=== PATIENT | female | born 1940 | race Caucasian/White ===

== ENCOUNTER 2020-04-25 07:42 | Outpatient (REF) | payer MEDICARE, SELFPAY ==
[2020-04-25 08:39] LABS: Basophils Absolute Auto 0.1 X10*3/uL (0.0-0.2); Eosinophils Absolute Auto 0.1 X10*3/uL (0.0-0.4); Eosinophils Percent Auto 1.8 % (0-4); Hematocrit 39.2 % (37-47); Hemoglobin 12.3 g/dl (12.0-16.0); Imm Gran Abs Auto 0.01 X10*3/uL (0.00-0.03); Imm Gran Pct Auto 0.2 % (0.0-0.4); Lymphocytes Absolute Auto 2.3 X10*3/uL (1.2-4.9); Lymphocytes Percent Auto 47.1 % (20-40); Mean Corpuscular HGB Conc 31.4 g/dl (31.0-35.0); Mean Corpuscular Hemoglobin 27.5 pg (27.0-33.0); Mean Corpuscular Volume 87.5 fL (80-98); Mean Platelet Volume 10.1 fL (9.4-12.3); Monocytes Absolute Auto 0.3 X10*3/uL (0.1-1.2); Monocytes Percent Auto 6.5 % (2-11); Neutrophils Absolute Auto 2.1 X10*3/uL (2.0-8.3); Neutrophils Percent Auto 43.4 % (45-73); Platelet Count 265 X10*3/uL (160-400); Red Blood Count 4.48 X10*6/uL (4.20-5.50); Red Cell Distribution Width 13.6 % (11.0-16.0); White Blood Count 4.9 X10*3/uL (4.8-10.8)
[2020-04-25 08:40] LABS: MANUAL DIFF FLAG NO
[2020-04-25 08:48] LABS: Estimated Average Glucose 189 mg/dL; Hemoglobin A1c % 8.2 %
[2020-04-25 09:24] LABS: Alanine Aminotransferase 13 U/L (0-31); Albumin Level 4.3 g/dL (3.5-5.0); Alkaline Phosphatase 84 U/L (39-117); Anion Gap 13 (12-20); Aspartate Amino Transferase 18 U/L (5-31); Bilirubin Total 0.5 mg/dL (0.0-1.0); Blood Urea Nitrogen 30 mg/dL (9-16); Carbon Dioxide 27 mmol/L (22-29); Chloride 105 mmol/L (96-108); Cholesterol 212 mg/dL; Estimated Glomerular Filt Rate 42; Glucose Random 164 mg/dL (60-115); HDL Cholesterol 55 mg/dL; LDL Cholesterol Calculated 143 mg/dl; Potassium 5.3 mmol/l (3.3-5.1); Sodium 140 mmol/L (135-145); Total Protein 7.2 g/dL (6.5-8.0); Triglycerides 72 mg/dL
[2020-04-25 09:25] LABS: Creatinine Urine 135.26 mg/dL; Microalbum/Creatinine Ratio Ur 8.8 ug/mg cr
[2020-04-25 09:45] LABS: Ferritin 12 ng/mL (10-250); Thyroid Stimulating Hormone 1.89 uIU/mL (0.32-4.0)
[2020-04-25 09:48] LABS: Vitamin B12 157 pg/mL (200-900)
== END 2020-04-25 07:43 | disposition home or self-care (01) ==
LOC: HO.LAB 07:42
PROVIDERS: PCP Internal Medicine; Visit Provider Internal Medicine
DX: E11.9 Type 2 diabetes mellitus without complications (principal); I10 Essential (primary) hypertension; D64.9 Anemia, unspecified; E78.00 Pure hypercholesterolemia, unspecified
CPT/HCPCS: 36415; 80053; 80061; 82043; 82607; 82728; 83036; 84443; 85025

== ENCOUNTER 2020-06-19 11:44 | Outpatient (REF) | payer MEDICARE, SELFPAY | END 2020-06-19 11:45 | disposition home or self-care (01) | LOC: HO.LAB 11:44 | PROVIDERS: PCP Internal Medicine; Visit Provider Internal Medicine | DX: Z20.822 Contact with and (suspected) exposure to COVID-19 (principal) | CPT/HCPCS: 36415; C9803; U0003; U0005 ==

== ENCOUNTER 2020-10-08 06:34 | Outpatient (REF) | payer MEDICARE, SELFPAY ==
[2020-10-08 07:40] LABS: Estimated Average Glucose 146 mg/dL; Hemoglobin A1c % 6.7 %
[2020-10-08 07:41] LABS: Alanine Aminotransferase 8 U/L (0-31); Alkaline Phosphatase 81 U/L (39-117); Anion Gap 12 (12-20); Aspartate Amino Transferase 14 U/L (5-31); Bilirubin Total 0.6 mg/dL (0.0-1.0); Blood Urea Nitrogen 25 mg/dL (9-16); Calcium 9.6 mg/dL (8.4-10.2); Carbon Dioxide 25 mmol/L (22-29); Chloride 111 mmol/L (96-108); Cholesterol 188 mg/dL; Estimated Glomerular Filt Rate 48; Glucose Random 138 mg/dL (60-115); HDL Cholesterol 51 mg/dL; LDL Cholesterol Calculated 119 mg/dl; Potassium 4.5 mmol/L (3.3-5.1); Sodium 143 mmol/L (135-145); Total Protein 6.6 g/dL (6.5-8.0); Triglycerides 92 mg/dL
== END 2020-10-08 06:35 | disposition home or self-care (01) ==
LOC: HO.LAB 06:34
PROVIDERS: PCP Internal Medicine; Visit Provider Internal Medicine
DX: Z00.01 Encounter for general adult medical examination with abnormal findings (principal); D51.3 Other dietary vitamin B12 deficiency anemia; E11.65 Type 2 diabetes mellitus with hyperglycemia; E78.00 Pure hypercholesterolemia, unspecified; I10 Essential (primary) hypertension; Z91.14 Patient's other noncompliance with medication regimen
CPT/HCPCS: 36415; 80053; 80061; 83036

== ENCOUNTER 2021-05-28 07:02 | Outpatient (REF) | payer MEDICARE, SELFPAY ==
[2021-05-28 07:24] LABS: MANUAL DIFF FLAG NO
[2021-05-28 08:00] LABS: Basophils Percent Auto 0.6 % (0-2); Eosinophils Absolute Auto 0.1 X10*3/uL (0.0-0.4); Eosinophils Percent Auto 1.7 % (0-4); Hematocrit 39.4 % (37.0-47.0); Hemoglobin 12.6 g/dl (12.0-16.0); Imm Gran Abs Auto 0.01 X10*3/uL (0.00-0.03); Imm Gran Pct Auto 0.2 % (0.0-0.4); Lymphocytes Percent Auto 36.9 % (20-40); Mean Corpuscular Hemoglobin 27.7 pg (27.0-33.0); Mean Corpuscular Volume 86.6 fL (80.0-98.0); Mean Platelet Volume 10.8 fL (9.4-12.3); Monocytes Absolute Auto 0.4 X10*3/uL (0.1-1.2); Monocytes Percent Auto 7.3 % (2-11); Neutrophils Absolute Auto 2.9 x10*3/uL (2.0-8.3); Neutrophils Percent Auto 53.3 % (45-73); Platelet Count 238 X10*3/uL (160-400); Red Blood Count 4.55 X10*6/uL (4.20-5.50); Red Cell Distribution Width 13.5 % (11.0-16.0); White Blood Count 5.3 X10*3/uL (4.8-10.8)
[2021-05-28 08:26] LABS: Estimated Average Glucose 154 mg/dL
[2021-05-28 08:33] LABS: Alanine Aminotransferase 15 U/L (0-31); Albumin Level 4.4 g/dL (3.5-5.0); Alkaline Phosphatase 91 U/L (39-117); Anion Gap 15 (12-20); Aspartate Amino Transferase 19 U/L (5-31); Bilirubin Total 0.4 mg/dL (0.0-1.0); Blood Urea Nitrogen 22 mg/dL (9-16); Calcium 10.3 mg/dL (8.4-10.2); Carbon Dioxide 23 mmol/L (22-29); Chloride 106 mmol/L (96-108); Cholesterol 230 mg/dL; Estimated Glomerular Filt Rate 42; Glucose Random 146 mg/dL (60-115); HDL Cholesterol 51 mg/dL; LDL Cholesterol Calculated 155 mg/dl; Potassium 4.4 mmol/L (3.3-5.1); Sodium 140 mmol/L (135-145); Total Protein 7.5 g/dL (6.5-8.0); Triglycerides 124 mg/dL
[2021-05-28 08:33] LABS: Creatinine Urine 211.16 mg/dL; Microalbum/Creatinine Ratio Ur 9.9 ug/mg cr
== END 2021-05-28 07:03 | disposition home or self-care (01) ==
LOC: HO.LAB 07:02
PROVIDERS: PCP Internal Medicine; Visit Provider Internal Medicine
DX: Z00.00 Encounter for general adult medical examination without abnormal findings (principal); E11.9 Type 2 diabetes mellitus without complications; I10 Essential (primary) hypertension; E78.00 Pure hypercholesterolemia, unspecified
CPT/HCPCS: 36415; 80053; 80061; 82043; 83036; 85025

== ENCOUNTER 2021-12-15 08:39 | Outpatient (REF) | payer MEDICARE, SELFPAY ==
[2021-12-15 09:19] LABS: Estimated Average Glucose 203 mg/dL; Hemoglobin A1c % 8.7 %
[2021-12-15 09:42] LABS: Alanine Aminotransferase 12 U/L (0-31); Alkaline Phosphatase 90 U/L (39-117); Anion Gap 12 (12-20); Aspartate Amino Transferase 13 U/L (5-31); Bilirubin Total 0.6 mg/dL (0.0-1.0); Blood Urea Nitrogen 20 mg/dL (9-16); Calcium 9.5 mg/dL (8.4-10.2); Carbon Dioxide 27 mmol/L (22-29); Chloride 107 mmol/L (96-108); Cholesterol 223 mg/dL; Estimated Glomerular Filt Rate 46; Glucose Random 182 mg/dL (60-115); HDL Cholesterol 52 mg/dL; LDL Cholesterol Calculated 153 mg/dl; Potassium 4.4 mmol/L (3.3-5.1); Sodium 142 mmol/L (135-145); Total Protein 6.9 g/dL (6.5-8.0); Triglycerides 91 mg/dL
== END 2021-12-15 08:40 | disposition home or self-care (01) ==
LOC: HO.LAB 08:39
PROVIDERS: PCP Internal Medicine; Visit Provider Internal Medicine
DX: E11.9 Type 2 diabetes mellitus without complications (principal); I10 Essential (primary) hypertension; E78.00 Pure hypercholesterolemia, unspecified; Z68.28 Body mass index [BMI] 28.0-28.9, adult
CPT/HCPCS: 36415; 80053; 80061; 83036

== ENCOUNTER 2021-12-31 07:53 | Outpatient (REF) | payer MEDICARE, SELFPAY ==
[2021-12-31 08:39] LABS: COVID-19 Test Negative (Negative); IDNOW Serial# 16C4AD1C
== END 2021-12-31 07:54 | disposition home or self-care (01) ==
LOC: HO.LAB 07:53
PROVIDERS: Visit Provider Internal Medicine
DX: Z20.822 Contact with and (suspected) exposure to COVID-19 (principal)
CPT/HCPCS: 87635; C9803

== ENCOUNTER 2022-04-07 06:23 | Outpatient (REF) | payer MEDICARE, SELFPAY ==
[2022-04-07 07:41] LABS: Estimated Average Glucose 203 mg/dL; Hemoglobin A1c % 8.7 %
[2022-04-07 07:48] LABS: Alanine Aminotransferase 26 U/L (0-31); Albumin Level 4.2 g/dL (3.5-5.0); Alkaline Phosphatase 94 U/L (39-117); Anion Gap 12 (12-20); Aspartate Amino Transferase 28 U/L (5-31); Bilirubin Total 0.4 mg/dL (0.0-1.0); Blood Urea Nitrogen 20 mg/dL (9-16); Carbon Dioxide 27 mmol/L (22-29); Chloride 109 mmol/L (96-108); Cholesterol 135 mg/dL; Estimated Glomerular Filt Rate 45; Glucose Random 156 mg/dL (60-115); HDL Cholesterol 35 mg/dL; LDL Cholesterol Calculated 70 mg/dl; Potassium 4.3 mmol/L (3.3-5.1); Sodium 144 mmol/L (135-145); Total Protein 7.2 g/dL (6.5-8.0); Triglycerides 154 mg/dL
== END 2022-04-07 06:24 | disposition home or self-care (01) ==
LOC: HO.LAB 06:23
PROVIDERS: PCP Internal Medicine; Visit Provider Internal Medicine
DX: E11.9 Type 2 diabetes mellitus without complications (principal); E78.00 Pure hypercholesterolemia, unspecified; I10 Essential (primary) hypertension
CPT/HCPCS: 36415; 80053; 80061; 83036

== ENCOUNTER 2022-07-16 07:11 | Outpatient (REF) | payer MEDICARE, SELFPAY ==
[2022-07-16 07:24] LABS: MANUAL DIFF FLAG NO
[2022-07-16 07:33] LABS: Basophils Percent Auto 0.7 % (0-2); Eosinophils Absolute Auto 0.2 X10*3/uL (0.0-0.4); Eosinophils Percent Auto 2.9 % (0-4); Hematocrit 35.9 % (37.0-47.0); Hemoglobin 11.3 g/dl (12.0-16.0); Imm Gran Abs Auto 0.01 X10*3/uL (0.00-0.03); Imm Gran Pct Auto 0.2 % (0.0-0.4); Lymphocytes Absolute Auto 2.3 X10*3/uL (1.2-4.9); Lymphocytes Percent Auto 41.1 % (20-40); Mean Corpuscular HGB Conc 31.5 g/dl (31.0-35.0); Mean Corpuscular Hemoglobin 26.7 pg (27.0-33.0); Mean Corpuscular Volume 84.9 fL (80.0-98.0); Mean Platelet Volume 10.1 fL (9.4-12.3); Monocytes Absolute Auto 0.4 X10*3/uL (0.1-1.2); Monocytes Percent Auto 7.4 % (2-11); Neutrophils Absolute Auto 2.7 x10*3/uL (2.0-8.3); Neutrophils Percent Auto 47.7 % (45-73); Platelet Count 231 X10*3/uL (160-400); Red Blood Count 4.23 X10*6/uL (4.20-5.50); Red Cell Distribution Width 13.9 % (11.0-16.0); White Blood Count 5.6 X10*3/uL (4.8-10.8)
[2022-07-16 08:08] LABS: Alanine Aminotransferase 16 U/L (0-31); Albumin Level 4.1 g/dL (3.5-5.0); Alkaline Phosphatase 100 U/L (39-117); Anion Gap 13 (12-20); Aspartate Amino Transferase 15 U/L (5-31); Bilirubin Total 0.5 mg/dL (0.0-1.0); Blood Urea Nitrogen 27 mg/dL (9-16); Calcium 9.5 mg/dL (8.4-10.2); Carbon Dioxide 24 mmol/L (22-29); Chloride 109 mmol/L (96-108); Estimated Glomerular Filt Rate 36; Glucose Random 207 mg/dL (60-115); Sodium 142 mmol/L (135-145); Total Protein 6.9 g/dL (6.5-8.0)
[2022-07-16 09:05] LABS: Estimated Average Glucose 220 mg/dL; Hemoglobin A1c % 9.3 %
[2022-07-16 09:22] LABS: Vitamin B12 291 pg/mL (200-900)
[2022-07-16 10:16] LABS: Creatinine Urine 35.85 mg/dL; Microalbum/Creatinine Ratio Ur 47.4 ug/mg cr
== END 2022-07-16 07:12 | disposition home or self-care (01) ==
LOC: HO.LAB 07:11
PROVIDERS: PCP Internal Medicine; Visit Provider Internal Medicine
DX: E11.9 Type 2 diabetes mellitus without complications (principal); E78.00 Pure hypercholesterolemia, unspecified; I10 Essential (primary) hypertension
CPT/HCPCS: 36415; 80053; 82043; 82607; 83036; 85025

== ENCOUNTER 2022-10-28 06:28 | Outpatient (REF) | payer MEDICARE, SELFPAY ==
[2022-10-28 08:01] LABS: Alanine Aminotransferase 12 U/L (0-31); Alkaline Phosphatase 91 U/L (39-117); Anion Gap 14 (12-20); Aspartate Amino Transferase 16 U/L (5-31); Bilirubin Total 0.4 mg/dL (0.0-1.0); Blood Urea Nitrogen 23 mg/dL (9-16); Calcium 10.2 mg/dL (8.4-10.2); Carbon Dioxide 25 mmol/L (22-29); Chloride 109 mmol/L (96-108); Estimated Glomerular Filt Rate 42; Glucose Random 141 mg/dL (60-115); Potassium 4.5 mmol/L (3.3-5.1); Sodium 143 mmol/L (135-145); Total Protein 7.2 g/dL (6.5-8.0)
[2022-10-28 08:06] LABS: Estimated Average Glucose 160 mg/dL; Hemoglobin A1c % 7.2 %
== END 2022-10-28 06:29 | disposition home or self-care (01) ==
LOC: HO.LAB 06:28
PROVIDERS: PCP Internal Medicine; Visit Provider Internal Medicine
DX: E11.65 Type 2 diabetes mellitus with hyperglycemia (principal); E11.22 Type 2 diabetes mellitus with diabetic chronic kidney disease; E78.00 Pure hypercholesterolemia, unspecified; I12.9 Hypertensive chronic kidney disease with stage 1 through stage 4 chronic kidney disease, or unspecified chronic kidney disease; N18.9 Chronic kidney disease, unspecified
CPT/HCPCS: 36415; 80053; 83036

== ENCOUNTER 2023-01-12 11:34 | Outpatient (REF) | payer MEDICARE, SELFPAY ==
--- NOTE | ~2023-01-12 | XR_ITS ---
EXAMINATION: XR HIP, LEFT CLINICAL INFORMATION: Osteoarthritis. COMPARISON: No prior left hip radiographs available for direct comparison. TECHNIQUE: Two views of the left hip. FINDINGS: Mild-moderate left hip osteoarthritis with joint space loss, marginal osteophytes. Ossifications along the lateral aspect of acetabulum, from osteophytes plus/minus loose bodies. No visible acute fracture or dislocation. There are rounded densities projected at the left ilium, measuring 2.1 cm and 1.3 cm respectively. It is uncertain if this represents overlying densities versus sclerotic lesions in the ilium. SI joints are intact. Right hip arthroplasty is partially imaged. Intact symphysis pubis. Degeneration in the visualized lower lumbar spine. XR/XR hip LT min 2V IMPRESSION: Mild-moderate left hip osteoarthritis. Lateral acetabular marginal osteophytes plus/minus loose bodies. Rounded densities projected over the left ilium, which could be related to overlapping densities versus sclerotic bone lesions. Recommend dedicated pelvic radiographs for further evaluation.
[2023-01-12 12:51] LABS: Alanine Aminotransferase 11 U/L (0-31); Albumin Level 4.3 g/dL (3.5-5.0); Alkaline Phosphatase 93 U/L (39-117); Anion Gap 11 (12-20); Aspartate Amino Transferase 16 U/L (5-31); Bilirubin Total 0.4 mg/dL (0.0-1.0); Blood Urea Nitrogen 26 mg/dL (9-16); Calcium 10.1 mg/dL (8.4-10.2); Carbon Dioxide 24 mmol/L (22-29); Chloride 111 mmol/L (96-108); Estimated Glomerular Filt Rate 43; Glucose Random 153 mg/dL (60-115); Potassium 4.2 mmol/L (3.3-5.1); Sodium 142 mmol/L (135-145); Total Protein 7.7 g/dL (6.5-8.0)
== END 2023-01-12 11:35 | disposition home or self-care (01) ==
LOC: HO.XRAY 11:34
PROVIDERS: PCP Internal Medicine; Visit Provider Internal Medicine
DX: M16.32 Unilateral osteoarthritis resulting from hip dysplasia, left hip (principal); M51.16 Intervertebral disc disorders with radiculopathy, lumbar region
CPT/HCPCS: 36415; 73502; 80053

== ENCOUNTER 2023-02-03 17:20 | Outpatient (REF) | payer MEDICARE, SELFPAY | END 2023-02-03 17:21 | disposition home or self-care (01) | LOC: HO.MRI 17:20 | PROVIDERS: PCP Internal Medicine; Visit Provider Internal Medicine | DX: M54.16 Radiculopathy, lumbar region (principal) | CPT/HCPCS: 72148 ==

== ENCOUNTER 2023-02-10 07:39 | Outpatient (REF) | payer MEDICARE, SELFPAY ==
--- NOTE | ~2023-02-10 | XR_ITS ---
EXAMINATION: XR PELVIS CLINICAL INFORMATION: Pain COMPARISON: Left hip radiograph from 01/12/2023 TECHNIQUE: AP view of the pelvis. FINDINGS: Status post right hip arthroplasty, grossly intact. No acute visible fracture or dislocation. Degenerative arthropathy of the left femoral acetabular joints and lumbosacral spine. Redemonstration of sclerotic foci overlying the left ileum nonspecific and may potentially representing bone islands. Joint spaces and alignment are otherwise maintained. Bowel gas is unremarkable. Pelvic phleboliths are noted. Soft tissues are unremarkable. XR/XR pelvis 1-2V IMPRESSION: 1. Status post right hip arthroplasty, grossly intact. 2. No acute visible fracture or dislocation. 3. Degenerative arthropathy of the left femoral acetabular joints and lumbosacral spine. 4. Redemonstration of sclerotic foci overlying the left ileum nonspecific and may potentially represent bone islands.
== END 2023-02-10 07:40 | disposition home or self-care (01) ==
LOC: HO.XRAY 07:39
PROVIDERS: PCP Internal Medicine; Visit Provider Internal Medicine
DX: R93.6 Abnormal findings on diagnostic imaging of limbs (principal)
CPT/HCPCS: 72170

== ENCOUNTER 2023-02-19 13:27 | Outpatient (AMB) | payer MEDICARE, SELFPAY ==
--- NOTE | 2023-02-19 13:34 | MHC.OFFVIS ---
Intake Vital Signs 02/19/23 13:38 Height 4 ft 6 in Weight 127 lb 3 oz BMI 30.7 BP 170/77 H Blood Pressure Location Lt brachial Position Sitting Pulse 85 Pulse Source Pulse Oximeter Pulse Oximetry (%) 98 Oxygen Delivery Method Room Air Intake Visit Reasons: Lumbar Radiculopathy Intake Note: Pain today 01/10 Dialysis Technician Required: No Accompanied by: Other Relationship Allergies atorvastatin Allergy (Unknown, Verified 02/19/23 13:53) Unknown metformin Allergy (Unknown, Verified 02/19/23 13:53) Unknown lisinopril Adverse Reaction (Unknown, Verified 02/19/23 13:53) Cough losartan Adverse Reaction (Unknown, Verified 02/19/23 13:53) Itching HPI Lumbar Radiculopathy HPI Details Patient is a very pleasant 82 years old female with prior history of diabetes, hip and knee OA, s/p right LYDIA in 2014, presents today for evaluation of left hip pain. Denies any recent trauma, injury or falls. Patient reports she has missed initial evaluation with Orthopedic provider on 02/18/23 for left hip and also has upcoming Neurosurgical evaluation at [facility] on 03/11/23 for left lumbar radiculopathy. Patient denies any significant back pain today. SLR testing reproduces left thigh and lateral hip pain but does not radiate below knee level. She does report weakness in her anterior thigh, hip and occasionally in her left knee. Denies numbness, tingling or foot drop. Coughing or sneezing does not reproduce pain. Patient reports significant left groin pain, especially with getting out of bed, shower or car, walking, prolonged positions such as standing for cooking or washing dishes, weight bearing or cold weather changes. Denies pain during sitting, sleeping or resting. Pain has been mainly controlled with NSAIDs and minimal benefit from PT as movements have been easily aggravating her symptoms. Patient denies previous spine surgery or injections. She is interested to undergo left hip intra-articular steroid injection with fluoroscopy to relieve her symptoms. Most recent A1C was 7.2 on 10/28/22. Denies bladdr or bowel dysfunction or saddle anesthesia. Location Left hip pain Duration Pain present for 3.5 months Characteristics of symptom or complaint Stabbing, spasming , aching, sharp Aggravating or associated factors Walking, movements, prolonged standing, ADLs, cold weather changes Relieving factors Rest, laying down, sitting, NSAIDs Treatment PT-currently in therapy for back and left hip pain, mild relief PFSH Medical History (Updated 02/21/23 @ 21:42 by GAGE Hernandez) Arthritis Diabetes mellitus Hypercholesteremia Anemia Asthma Hypertension Surgical History (Updated 02/21/23 @ 21:42 by GAGE Hernandez) H/O hernia repair H/O tubal ligation 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 Alert and oriented. Mood and affect appropriate. Pleasant. Follows and participates in conversation appropriately. Respiratory effort is unlabored. No cough. Able to transition from sit to stand unassisted. Uses cane with ambulation. Ambulates with bilaterally normal heel strike and toe off. Back/Spine/Pelvis Other: Limited lumbar ROM, extension reproduces mild low back pain, flexion and bending does not reproduce pain. Antalgic gait with mild limping. Demonstrates 5/5 right and 4/5 left strength of quadriceps bilaterally as well as flexion/dorsiflexion of bilateral feet against resistance. 2+ pedal pulses bilaterally. Seated straight leg rise with dorsiflexion negative on the right, on the reproduces left thigh and lateral hip pain but does not radiate below knee level. She does report weakness in her anterior thigh, hip and occasionally in her left knee. Dimished patellar and achilles reflexes bilaterally. Facet loading test positive bilaterally. FADIR, Ziggy?s, Pelvic compression and Stinchfield tests reproduce left lateral hip and left groin pain but not low back pain. +mild TTP in left GTB and mild tension in left ITB. Significant left groin pain with I/E hip rotations, worse with internal rotation. Valsalva maneuver negative. Extrem General: Yes capillary refill normal, Yes no clubbing, cyanosis or edema and Yes no calf tenderness Results Reviewed Results Reviewed: MR LUMBAR SPINE WITHOUT CONTRAST 02/03/23 CLINICAL INFORMATION: Left radiculopathy FINDINGS: There is transitional lumbosacral anatomy with lumbarization of S1 and a fairly well-formed disc space at S1-S2. Trace anterolisthesis of L5 on S1.. No suspicious marrow signal or focal osseous lesion. No significant marrow edema. Type II endplate marrow signal changes at L5-S1. The vertebral body heights are maintained. Multilevel disc desiccation with disc height loss at L5-S1. The conus medullaris terminates at the level of L2. The distal spinal cord is normal in appearance. The cauda equina nerve roots appear normal. No significant abnormalities of the paraspinal musculature. There is a 1.4 cm left adrenal nodule. The abdominal aorta is of normal contour and caliber. SPINAL LEVELS: L1-L2: No significant spinal canal or neuroforaminal narrowing. L2-L3: Shallow disc bulge and mild facet arthropathy. No significant spinal canal stenosis. Mild bilateral neural foraminal narrowing. L3-L4: Shallow broad-based disc bulge with superimposed left greater than right foraminal protrusions, mild facet arthropathy. No significant central spinal canal stenosis. Mild right and moderate left neural foraminal narrowing with possible impingement of the exiting left L3 nerve root. L4-L5: Shallow disc bulge, moderate facet arthropathy. No significant central spinal canal stenosis. Mild to moderate bilateral neural foraminal narrowing. L5-S1: Anterolisthesis with posterior disc uncovering. Severe facet arthropathy. Disc osteophyte complex with superimposed central and left subarticular protrusion which compresses the traversing left S1 nerve root in the subarticular zone. No significant central spinal canal stenosis. Moderate to severe bilateral neural foraminal narrowing with impingement of the exiting L5 nerve roots. IMPRESSION: 1. 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 2. At L5-S1, there is trace anterolisthesis related to advanced facet arthropathy with disc osteophyte complex and superimposed central and left subarticular disc protrusion which compresses the traversing left S1 nerve root in the subarticular zone. There is also moderate to severe bilateral neural foraminal narrowing at this level with impingement of the exiting L5 nerve roots. 3. At L3-L4, there is moderate left and mild right neural foraminal narrowing with possible impingement of the exiting left L3 nerve root. 4. At L4-L5, there is mild to moderate bilateral neural foraminal narrowing. 5. Indeterminate 1.4 cm left adrenal nodule. Recommend further evaluation with adrenal protocol CT or MRI. XR/XR pelvis 1-2V 02/10/23 IMPRESSION: 1. Status post right hip arthroplasty, grossly intact. 2. No acute visible fracture or dislocation. 3. Degenerative arthropathy of the left femoral acetabular joints and lumbosacral spine. 4. Redemonstration of sclerotic foci overlying the left ileum nonspecific and may potentially represent bone islands. XR HIP, LEFT 01/12/23 CLINICAL INFORMATION: Osteoarthritis. FINDINGS: Mild-moderate left hip osteoarthritis with joint space loss, marginal osteophytes. Ossifications along the lateral aspect of acetabulum, from osteophytes plus/minus loose bodies. No visible acute fracture or dislocation. There are rounded densities projected at the left ilium, measuring 2.1 cm and 1.3 cm respectively. It is uncertain if this represents overlying densities versus sclerotic lesions in the ilium. SI joints are intact. Right hip arthroplasty is partially imaged. Intact symphysis pubis. Degeneration in the visualized lower lumbar spine. IMPRESSION: Mild-moderate left hip osteoarthritis. Lateral acetabular marginal osteophytes plus/minus loose bodies. Rounded densities projected over the left ilium, which could be related to overlapping densities versus sclerotic bone lesions. Recommend dedicated pelvic radiographs for further evaluation. Assessment & Plan Assessment & Plan (1) Lumbar back pain with radiculopathy affecting left lower extremity: Code(s): M54.16 - Radiculopathy, lumbar region (2) Osteoarthritis of left hip: Code(s): M16.12 - Unilateral primary osteoarthritis, left hip (3) Left hip pain: Code(s): M25.552 - Pain in left hip Plan Patient's pain is consistent with left lumbar radicular and left hip OA components. Lumbar spine MRI and left hip xray reports reviewed with patient. She has been in PT for both pain generators and NSAIDs with mild benefit. Pending Orthopedic and Neurosurgical evaluations. We will proceed with Left Hip Intra-articular Steroid Injection under sedation and fluoroscopy per patient's request. Patient not on anticoagulant. Most recent A1C 7.2. Counseled patient on vigilance in checking and treatment of hyperglycemia following steroid injection. Expectations, risks and benefits were reviewed. Patient is aware she will be contacted to schedule this procedure. All questions were answered and the patient is in agreement of plan. Follow-up after injections and sooner as needed. Coding Level of Care Code New Pt Level 4 (54123) Diagnoses Lumbar back pain with radiculopathy affecting left lower extremity M54.16 Osteoarthritis of left hip M16.12 Left hip pain M25.552
[2023-02-19 13:38] VITALS: BP 170/77; PULSE 85; O2SAT 98; BMI 30.7
== END 2023-02-19 14:04 | disposition home or self-care (01) ==
PROVIDERS: PCP Internal Medicine; Visit Provider Nurse Practitioner Family
DX: M54.16 Radiculopathy, lumbar region (principal); M16.12 Unilateral primary osteoarthritis, left hip; M25.552 Pain in left hip
CPT/HCPCS: 99204

== ENCOUNTER → 2023-02-19 13:27 | Outpatient (BNVA) | payer MEDICARE, SELFPAY | PROVIDERS: PCP Internal Medicine; Visit Provider Nurse Practitioner Family ==

== ENCOUNTER 2023-02-24 08:00 | Outpatient (RCR) | payer MEDICARE, SELFPAY | END 2023-03-22 11:28 | disposition home or self-care (01) | LOC: HO.PT 08:00 | PROVIDERS: PCP Internal Medicine; Visit Provider Internal Medicine | DX: M54.16 Radiculopathy, lumbar region (principal) | CPT/HCPCS: 97140; 97162; 97530 ==

== ENCOUNTER 2023-03-05 09:56 | Day surgery (SDC) | payer MEDICARE, SELFPAY ==
--- NOTE | 2023-03-04 10:30 | HO.ANESPROP2 ---
Documented by User: Yamilex Estrella NP 03/04/23 10:32 HPI - Anesthesia Eval Consult details Narrative: 82yo F for Left Therapeutic Hip Intra-Articular Injection PMFSH Active Problems Active Problems: All Active Problems (Updated 02/21/23 @ 21:42 by GAGE Hernandez) Arthritis (Acute) Left hip pain (Acute) Osteoarthritis of left hip (Acute) Lumbar back pain with radiculopathy affecting left lower extremity (Acute) Past Medical History Medical History (Updated 03/05/23 @ 11:10 by Peyton Fernandes MD) Arthritis Diabetes mellitus Hypercholesteremia Anemia Asthma Hypertension Surgical History Surgical History H/O hernia repair H/O tubal ligation History of total right hip arthroplasty (07/28/14) Social History Social History Patient Tobacco Use Status: Never used Tobacco Use of substances other than those prescribed or required for medical reasons: No Are you DNR?: No Advance Directives: No Advance Directives Information Provided: Yes Meds Allergies Allergy/AdvReac Type Severity Reaction Status Date / Time atorvastatin Allergy Unknown Unknown Verified 03/05/23 10:25 lisinopril AdvReac Unknown Cough Verified 03/05/23 10:25 losartan AdvReac Unknown Itching Verified 03/05/23 10:25 Home Medications Medication Instructions Recorded Confirmed Last Taken Type amlodipine 10 mg tablet 10 mg PO DAILY 02/19/23 03/05/23 03/05/23 History cyclobenzaprine 5 mg tablet 5 mg PO BEDTIME PRN Pain 02/19/23 03/05/23 03/04/23 History dexamethasone 2 mg tablet 2 mg PO DAILY 02/19/23 03/05/23 03/04/23 History glipizide 5 mg tablet, extended 5 mg PO DAILY 02/19/23 03/05/23 03/04/23 History release 24 hr metformin 750 mg tablet,extended 750 mg PO BID 02/19/23 03/05/23 03/04/23 History release 24 hr rosuvastatin 20 mg tablet 20 mg PO BEDTIME 02/19/23 03/05/23 03/04/23 History valsartan 320 1 tab PO DAILY 10/03/05/23 03/04/23 History mg-hydrochlorothiazide 25 mg tablet Exam Exam Date and Time: March 04, 2023 1030 Pertinent Lab Results Pertinent Lab Results: Laboratory Tests 07/16/22 01/12/23 07:22 11:48 WBC 5.6 Hgb 11.3 L Hct 35.9 L Plt Count 231 Sodium 142 Potassium 4.2 Chloride 111 H Carbon Dioxide 24 BUN 26 H Creatinine 1.21 Assessment and Plan Assessment Anesthesia Assessment: Chart Reviewed Documented by User: Peyton Fernandes MD 03/05/23 11:14 PMFSH Active Problems Active Problems: All Active Problems (Updated 03/05/23 @ 11:05 by Peyton Fernandes MD) Arthritis (Acute) Left hip pain (Acute) Osteoarthritis of left hip (Acute) Lumbar back pain with radiculopathy affecting left lower extremity (Acute) Past Medical History Medical History (Updated 03/05/23 @ 11:10 by Peyton Fernandes MD) Arthritis Diabetes mellitus Hypercholesteremia Anemia Asthma Hypertension Family History Family history of problems with anesthesia: No Surgical History Surgical History H/O hernia repair H/O tubal ligation History of total right hip arthroplasty (07/28/14) History of Problems with Anesthesia: No Social History Social History Patient Tobacco Use Status: Never used Tobacco Use of substances other than those prescribed or required for medical reasons: No Are you DNR?: No Advance Directives: No Advance Directives Information Provided: Yes Meds Allergies Allergy/AdvReac Type Severity Reaction Status Date / Time atorvastatin Allergy Unknown Unknown Verified 03/05/23 10:25 lisinopril AdvReac Unknown Cough Verified 03/05/23 10:25 losartan AdvReac Unknown Itching Verified 03/05/23 10:25 Home Medications Medication Instructions Recorded Confirmed Last Taken Type amlodipine 10 mg tablet 10 mg PO DAILY 02/19/23 03/05/23 03/05/23 History cyclobenzaprine 5 mg tablet 5 mg PO BEDTIME PRN Pain 02/19/23 03/05/23 03/04/23 History dexamethasone 2 mg tablet 2 mg PO DAILY 02/19/23 03/05/23 03/04/23 History glipizide 5 mg tablet, extended 5 mg PO DAILY 02/19/23 03/05/23 03/04/23 History release 24 hr metformin 750 mg tablet,extended 750 mg PO BID 02/19/23 03/05/23 03/04/23 History release 24 hr rosuvastatin 20 mg tablet 20 mg PO BEDTIME 02/19/23 03/05/23 03/04/23 History valsartan 320 1 tab PO DAILY 02/19/23 03/05/23 03/04/23 History mg-hydrochlorothiazide 25 mg tablet Exam Height,Weight and Vital Signs: Height 4 ft 6 in Weight 57.606 kg Vital Signs Temp Pulse Resp BP Pulse Ox O2 Del Method 03/05/23 10:48 98.3 F 108 H 16 156/72 H 100 Room Air Pertinent Lab Results Pertinent Lab Results: Laboratory Tests 07/16/22 01/12/23 07:22 11:48 WBC 5.6 Hgb 11.3 L Hct 35.9 L Plt Count 231 Sodium 142 Potassium 4.2 Chloride 111 H Carbon Dioxide 24 BUN 26 H Creatinine 1.21 Lab Results 03/05/23 Range/Units 10:52 POC Glucose 270 H (60-115) mg/dL Airway Mallampati Class: II TM Dist: >3cm Neck ROM: Full Loose/Missing/Broken Teeth: Yes (Broken front teeth(fell), broken tooth top right back. Denies loose teeth. Some missing teeth) Heart: RRR Lungs: CTAB Assessment and Plan Assessment Anesthesia Assessment: Anesthesia Plan Discussed Final Anesthetic Review Family History of Problems with Anesthesia: No History of Problems with Anesthesia: No NPO: Yes ASA Class: II Final Preanesthetic Review: No Changes in Pt Med Stat, Meds/Allgs Chart Reviewed, Consent Obtained/Reviewed and Anes Risks/Benef Reviewed Patient Risk: Low Procedure Risk: Low Assessment/Block/Sedation in SS: Assess/Block/Sedation-SS Anesthetic Plan Anesthetic Plan: MAC: Disposition: Standard PACU
--- NOTE | ~2023-03-05 | FL_ITS ---
EXAMINATION: XR FLUOROSCOPY WITH IMAGES CLINICAL INFORMATION: Hip injection, left. COMPARISON: None available. TECHNIQUE: Fluoroscopy Supervised By: Dr. Tremayne Alvarez. Fluoroscopy Time: 0.1 minute. Cumulative Dose: 7.8 mGy. DAP: 1.76 Gycm2. Images: 1. FINDINGS: Image demonstrates needle placement and contrast injection of the left hip joint FL/FL guidance in OR IMPRESSION: Fluoroscopy guidance for pain management procedure
[2023-03-05 10:16] VITALS: BMI 30.6
--- NOTE | 2023-03-05 10:32 | MHC.SHP ---
Pre-Procedural Eval Section A Date of Service: 03/05/23 The patient is an INPATIENT: No The History & Physical has been completed within 30 days and I have reviewed it.: No Section B Chief Complaint: Unilateral primary osteoarthritis, left hip,hip pa Details of Present Illness: as above Relevant Family History (Specify if Yes): No Relevant Social History: None Present Medications: None Medical History: No relevant PMH History of Previous Operations: No relevant previous surgery Allergies: Allergies Allergy/AdvReac Type Severity Reaction Status Date / Time atorvastatin Allergy Unknown Unknown Verified 03/05/23 10:25 lisinopril AdvReac Unknown Cough Verified 03/05/23 10:25 losartan AdvReac Unknown Itching Verified 03/05/23 10:25 Review of Systems Sugical H&P ROS: Negative: Constitution, Cardiovascular, Respiratory, Neurological, Psychiatric, Hem-Onc, Allergic/Immunologic, Gastrointestinal, Genitourinary, Musculoskeletal, Integumentary, Endocrine and Eyes/Ears/Nose/Throat Exam Surgical H&P Exam: Normal: HEENT, Normal: Heart, Normal: Lungs, Normal: Extremities, Normal: Abdomen, Normal: Skin and Normal: Neurological Plan Diagnosis/Plan: Unchanged I have reviewed the history and physical and performed a pertinent physical examination on my patient. No changes have occurred unless specified. Time Spent With Patient Time: Total time managing care of this patient today _5___ minutes.
[2023-03-05 10:48] VITALS: BP 156/72; PULSE 108; RESP 16; TEMP 36.8; O2SAT 100
[2023-03-05] MEDS: Lactated Ringers 1,000 ML 100 ML IVCONT (10:48)
--- NOTE | 2023-03-05 10:54 | PC.NURSE ---
Dr. Fernandes notified BS [id number].
[2023-03-05 10:58] LABS: Glucose, Whole Blood 270 mg/dL (60-115)
--- NOTE | 2023-03-05 11:30 | PM.OP ---
Brief Operative Note Date of Service: 03/05/23 Pre-op diagnosis: left hip joint OA, Left hip pain Post-op diagnosis: same Procedure: intra-articular hip steroid injection. Surgeon: Tremayne Alvarez MD Anesthesia: MAC Was an Finger Lift Operator used for this Procedure?: No Estimated blood loss (mL): 0 Condition: stable Disposition: PACU
--- NOTE | 2023-03-05 11:31 | W.PM.OPN ---
Operative Note Operative Note Date of Service: 03/05/23 Narrative: Left hip steroid injection. Informed consent was explained to the patient. All questions were explained and answered. The patient was taken inside of the operating room where she was positioned left lateral decubitus on operating table.. Time-out was performed delineating patient's name and date of , correct site, side, the nature of the procedure, patient's allergy, preoperative antibiotic if needed, need for DVT prophylaxis.. All operating room staff was participating in OR time-out procedure. ASA monitors applied and patient was deeply sedated. Left hip area of the patient was prepped with ChloraPrep and draped with sterile towels. C-arm was brought over the operating field and picture of left and right lateral views of the bilateral hip joints were delineated on the screen. prosthesis in the right hip was noted. The smaller joint silhouette was chosen as the target. Projection of the right trochanter to the skin was chosen as the initial needle insertion point. After that the skin and subcutaneous tissues was anesthetized with 2% lidocaine 2 mL. 22 gauge 5 in long needle was inserted through the skin and started to advance to the joint space under intermittent lateral and anterior posterior views. When needle entered the capsule of the joint small amount of the contrast was injected delineating intra-articular space. After that treatment solution containing 5 mls of ropivacaine 0.5% and 40 mg of Kenalog was injected into the joint. The needle was withdrawn sterile dressing was applied.The patient tolerated procedure well .
[2023-03-05 11:36] VITALS: BP 99/58; PULSE 88; RESP 16; TEMP 36.3; O2SAT 98
[2023-03-05 11:51] VITALS: BP 115/69; PULSE 88; RESP 17; O2SAT 99
[2023-03-05 12:06] VITALS: BP 119/68; PULSE 87; RESP 18; TEMP 36.8; O2SAT 99
== END 2023-03-05 12:29 | disposition home or self-care (01) ==
PROVIDERS: PCP Internal Medicine; Visit Provider Anesthesiology
PROC: (CPT 20610; principal; 2023-03-05 11:40)
DX: M25.552 Pain in left hip (principal); M16.12 Unilateral primary osteoarthritis, left hip; I10 Essential (primary) hypertension; E78.00 Pure hypercholesterolemia, unspecified; D64.9 Anemia, unspecified; E11.9 Type 2 diabetes mellitus without complications; Z79.84 Long term (current) use of oral hypoglycemic drugs; Z79.899 Other long term (current) drug therapy; Z88.8 Allergy status to other drugs, medicaments and biological substances; Z96.641 Presence of right artificial hip joint
CPT/HCPCS: 20610; 82947; J2795; J3301; Q9967

== ENCOUNTER → 2023-03-05 09:56 | Outpatient (BNV) | payer MEDICARE, SELFPAY | PROVIDERS: PCP Internal Medicine; Visit Provider Anesthesiology | DX: M25.552 Pain in left hip (principal) | CPT/HCPCS: 20610; 77002 ==

== ENCOUNTER 2023-04-08 12:54 | Outpatient (AMB) | payer MEDICARE, SELFPAY ==
--- NOTE | 2023-04-08 12:56 | A.OFFVIS_ITS ---
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 Avlarez. Patient reports 0% pain relief since injection without any improvement in her symptoms, function or sleep. Patient requests referral to Dr. Bird at [facility] Orthopedic office. She reports previous right hip LYDIA at [facility] and would like to proceed with surgical evaluation for her constant, chronic left hip pain. She denies any back pain or radicular back symptoms today. Reports left lateral hip and anterior thigh and groin pain with hip internal/external rotations, changing positions and weight bearing. Ambulates with slow, antalgic gait with limping. Uses cane with walking, reports weakness on left lower extremity due to hip pain. Occasionally reports transient burning pain in left danielle. Lumbar spine MRI at L4-L5 reports shallow disc bulge, moderate facet arthropathy. No significant central spinal canal stenosis. Mild to moderate bilateral neural foraminal narrowing. Patient believes her pain comes from hip. Denies any fever, abdominal pain, weight loss, bladder or bowel dysfunciton or saddle anesthesia. Past Procedures: 03/05/23: Left Intra-articular hip stero id injection-0% pain relief PRIOR: Patient is a very pleasant 82 years old female with prior history of diabetes, hip and knee OA, s/p right LYDIA in 2014, presents today for evaluation of left hip pain. Denies any recent trauma, injury or falls. Patient reports she has missed initial evaluation with Orthopedic provider on 02/18/23 for left hip and also has upcoming Neurosurgical evaluation at [facility] on 03/11/23 for left lumbar radiculopathy. Patient denies any significant back pain today. SLR testing reproduces left thigh and lateral hip pain but does not radiate below knee level. She does report weakness in her anterior thigh, hip and occasionally in her left knee. Denies numbness, tingling or foot drop. Coughing or sneezing does not reproduce pain. Patient reports significant left groin pain, especially with getting out of bed, shower or car, walking, prolonged positions such as standing for cooking or washing dishes, weight bearing or cold weather changes. Denies pain during sitting, sleeping or resting. Pain has been mainly controlled with NSAIDs and minimal benefit from PT as movements have been easily aggravating her symptoms. Patient denies previous spine surgery or injections. She is interested to undergo left hip intra-articular steroid injection with fluoroscopy to relieve her symptoms. Most recent A1C was 7.2 on 10/28/22. Denies bladdr or bowel dysfunction or saddle anesthesia. Location Left hip pain Duration Pain present for 3.5 months Characteristics of symptom or complaint Stabbing, spasming , aching, sharp Aggravating or associated factors Walking, movements, prolonged standing, ADLs, cold weather changes Relieving factors Rest, laying down, sitting, NSAIDs Treatment PT-currently in therapy for back and left hip pain, mild relief PFSH Medical History Arthritis Diabetes mellitus Hypercholesteremia Anemia Asthma Hypertension Surgical History H/O hernia repair H/O tubal ligation History of total right hip arthroplasty (07/28/14) Social History Comment: no counts needed Patient Tobacco Use Status: Never used Tobacco Review of Systems Const All systems reviewed & are unremarkable except as noted in HPI and below Physical Exam Vital Signs: Last Vital Signs Pulse 90 04/08/23 13:01 BP 138/63 04/08/23 13:01 Pulse Ox 97 04/08/23 13:01 Oxygen Delivery Method Room Air 04/08/23 13:01 BMI result Body Mass Index 31.3 General: Appears afebrile. Alert and oriented. Mood and affect appropriate. Pleasant. Follows and participates in conversation appropriately. Respiratory effort is unlabored. No cough. Able to transition from sit to stand unassisted. Uses cane with ambulation. Ambulates with antalgic gait, with limping. Back/Spine/Pelvis Other: Denies back symptoms today. No pain with lumbar extension or flexion forward. Demonstrates 5/5 right and 4/5 left strength of quadriceps bilaterally as well as flexion/dorsiflexion of bilateral feet against resistance. 2+ pedal pulses bilaterally. FADIR, Ziggy?s, Pelvic compression and Stinchfield tests reproduce left lateral hip and left groin pain but not low back pain. +mild TTP in left GTB. Significant left groin pain with I/E hip rotations, worse with internal rotation. Valsalva maneuver negative. Cervical Spine: cervical ROM normal and No Cervical spine tenderness Thoracic/Lumbar Spine: thoracic and lumbar spine normal to inspection, Thoracic/lumbar spine scar(s), Lasegue's sign negative, straight leg raise negative bilaterally, No thoracic spinal tenderness and No lumbar spinal tenderness Pelvis: no buttock tenderness Sacroiliac joints: bilaterally nontender and tender to palpation Extrem General: Yes capillary refill normal, Yes no clubbing, cyanosis or edema and Yes no calf tenderness Results Reviewed Results Reviewed: MR LUMBAR SPINE WITHOUT CONTRAST 02/03/23 CLINICAL INFORMATION: Left radiculopathy FINDINGS: There is transitional lumbosacral anatomy with lumbarization of S1 and a fairly well-formed disc space at S1-S2. Trace anterolisthesis of L5 on S1.. No suspicious marrow signal or focal osseous lesion. No significant marrow edema. Type II endplate marrow signal changes at L5-S1. The vertebral body heights are maintained. Multilevel disc desiccation with disc height loss at L5-S1. The conus medullaris terminates at the level of L2. The distal spinal cord is normal in appearance. The cauda equina nerve roots appear normal. No significant abnormalities of the paraspinal musculature. There is a 1.4 cm left adrenal nodule. The abdominal aorta is of normal contour and caliber. SPINAL LEVELS: L1-L2: No significant spinal canal or neuroforaminal narrowing. L2-L3: Shallow disc bulge and mild facet arthropathy. No significant spinal canal stenosis. Mild bilateral neural foraminal narrowing. L3-L4: Shallow broad-based disc bulge with superimposed left greater than right foraminal protrusions, mild facet arthropathy. No significant central spinal canal stenosis. Mild right and moderate left neural foraminal narrowing with possible impingement of the exiting left L3 nerve root. L4-L5: Shallow disc bulge, moderate facet arthropathy. No significant central spinal canal stenosis. Mild to moderate bilateral neural foraminal narrowing. L5-S1: Anterolisthesis with posterior disc uncovering. Severe facet arthropathy. Disc osteophyte complex with superimposed central and left subarticular protrusion which compresses the traversing left S1 nerve root in the subarticular zone. No significant central spinal canal stenosis. Moderate to severe bilateral neural foraminal narrowing with impingement of the exiting L5 nerve roots. IMPRESSION: 1. 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 2. At L5-S1, there is trace anterolisthesis related to advanced facet arthropathy with disc osteophyte complex and superimposed central and left subarticular disc protrusion which compresses the traversing left S1 nerve root in the subarticular zone. There is also moderate to severe bilateral neural foraminal narrowing at this level with impingement of the exiting L5 nerve roots. 3. At L3-L4, there is moderate left and mild right neural foraminal narrowing with possible impingement of the exiting left L3 nerve root. 4. At L4-L5, there is mild to moderate bilateral neural foraminal narrowing. 5. Indeterminate 1.4 cm left adrenal nodule. Recommend further evaluation with adrenal protocol CT or MRI. XR/XR pelvis 1-2V 02/10/23 IMPRESSION: 1. Status post right hip arthroplasty, grossly intact. 2. No acute visible fracture or dislocation. 3. Degenerative arthropathy of the left femoral acetabular joints and lumbosacral spine. 4. Redemonstration of sclerotic foci overlying the left ileum nonspecific and may potentially represent bone islands. XR HIP, LEFT 01/12/23 CLINICAL INFORMATION: Osteoarthritis. FINDINGS: Mild-moderate left hip osteoarthritis with joint space loss, marginal osteophytes. Ossifications along the lateral aspect of acetabulum, from osteophytes plus/minus loose bodies. No visible acute fracture or dislocation. There are rounded densities projected at the left ilium, measuring 2.1 cm and 1.3 cm respectively. It is uncertain if this represents overlying densities versus sclerotic lesions in the ilium. SI joints are intact. Right hip arthroplasty is partially imaged. Intact symphysis pubis. Degeneration in the visualized lower lumbar spine. IMPRESSION: Mild-moderate left hip osteoarthritis. Lateral acetabular marginal osteophytes plus/minus loose bodies. Rounded densities projected over the left ilium, which could be related to overlapping densities versus sclerotic bone lesions. Recommend dedicated pelvic radiographs for further evaluation. Assessment & Plan Assessment & Plan (1) Left hip pain: Code(s): M25.552 - Pain in left hip (2) Osteoarthritis of left hip: Code(s): M16.12 - Unilateral primary osteoarthritis, left hip (3) Lumbar degenerative disc disease: Code(s): M51.36 - Other intervertebral disc degeneration, lumbar region (4) Lumbar spondylosis: Code(s): M47.816 - Spondylosis without myelopathy or radiculopathy, lumbar region Plan Patient is status post left hip therapeutic intra-articular with fluoroscopy with no pain relief. She requests referral to Dr. Bird at Orthopedic office to discuss surgical option. She reports similar pain in her left hip and groin area that she had in her right hip in 2015 which resolved after right LYDIA at [facility]. Patient is hesitant towards any further interventional treatments. She denies any back symptoms today. I will provide her short script for tramadol for severe left hip/groin pain. Side effects and precautions were discussed with patient. All questions were answered and the patient is in agreement of plan. Follow-up as needed. Orders: Referrals Orthopedics Referral M16.12 - Unilateral primary osteoarthritis, left hip, M25.552 - Pain in left hip Medications: New tramadol 50 mg PO BID 5 days PRN 10 tabs 0RF pain M16.12 - Unilateral primary osteoarthritis, left hip, M25.552 - Pain in left hip Coding Level of Care Code Est Pt Level 4 (58349) Diagnoses Left hip pain M25.552 Osteoarthritis of left hip M16.12 Lumbar degenerative disc disease M51.36 Lumbar spondylosis M47.816
[2023-04-08 13:01] VITALS: BP 138/63; PULSE 90; O2SAT 97; BMI 31.3
== END 2023-04-08 13:27 | disposition home or self-care (01) ==
PROVIDERS: PCP Internal Medicine; Visit Provider Nurse Practitioner Family
DX: M25.552 Pain in left hip (principal); M16.12 Unilateral primary osteoarthritis, left hip; M51.36 Other intervertebral disc degeneration, lumbar region; M47.816 Spondylosis without myelopathy or radiculopathy, lumbar region
CPT/HCPCS: 99214

== ENCOUNTER → 2023-04-08 12:54 | Outpatient (BNVA) | payer MEDICARE, SELFPAY | PROVIDERS: PCP Internal Medicine; Visit Provider Nurse Practitioner Family | DX: M25.552 Pain in left hip (principal); M16.12 Unilateral primary osteoarthritis, left hip; M51.36 Other intervertebral disc degeneration, lumbar region; M47.816 Spondylosis without myelopathy or radiculopathy, lumbar region | CPT/HCPCS: 99212 ==

== ENCOUNTER 2023-04-13 07:50 | Outpatient (AMB) | payer MEDICARE, SELFPAY ==
--- NOTE | 2023-04-13 08:03 | MHC.OFFVIS ---
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 She states that she felt a ?sharp pain? in her left leg approximately 6 months ago while ironing close. Since that time she has had difficulty sleeping because of her pain. She did have a cortisone injection given into her left hip which gave her no relief. The patient does walk with a cane. Allergies atorvastatin Allergy (Unknown, Verified 04/13/23 08:06) Unknown lisinopril Adverse Reaction (Unknown, Verified 04/13/23 08:06) Cough losartan Adverse Reaction (Unknown, Verified 04/13/23 08:06) Itching PFSH Medical History Arthritis Diabetes mellitus Hypercholesteremia Anemia Asthma Hypertension Surgical History H/O hernia repair H/O tubal ligation History of total right hip arthroplasty (07/28/14) Social History Comment: no counts needed Patient Tobacco Use Status: Never used Tobacco Physical Exam Const Other: Well-nourished well-developed very friendly female awake alert and oriented x3 in no acute distress Back/Spine/Pelvis Other: Low back examination shows left-sided paraspinal muscle tenderness, pain with range of motion, positive straight leg raise test on the left at 70 degrees Left hip examination shows slightly decreased range of motion when compared to her right hip, mild pain with range of motion, no tenderness over bursa Results Reviewed Results Reviewed: X-rays of the patient's left hip show moderate joint space narrowing, no acute bony abnormalities MRI report of the patient's lumbar spine taken on 02/03/2023 shows severe facet arthropathy as well as severe bilateral neural foraminal narrowing with impingement of the exiting L5 nerve roots at level L5-S1 Assessment & Plan Assessment & Plan (1) Lumbar back pain with radiculopathy affecting left lower extremity: Code(s): M54.16 - Radiculopathy, lumbar region Plan: Ms. Bolivar presents with progressively worsening low back pain which radiates down her left leg possibly due to lumbar stenosis. Thus, I will arrange for her to have a follow-up appointment in the Neurosurgery Department here at [facility]. Patient also has moderate left hip degenerative joint disease. It seems as though the majority of her symptoms are coming from her lumbar spine pathology at this point. The patient will follow-up as instructed. Feel free to call me at any time should questions regarding her orthopedic management arise. Thank you very much for asking me to see this very friendly patient. I spent 22 minutes in reviewing the patient's records and imaging studies, seeing the patient and documenting in the medical record. Orders: Referrals Neurosurgery Referral M54.16 - Radiculopathy, lumbar region Coding Level of Care Code New Pt Level 2 (45622) Diagnoses Lumbar back pain with radiculopathy affecting left lower extremity M54.16
== END 2023-04-13 08:23 | disposition home or self-care (01) ==
PROVIDERS: PCP Internal Medicine; Visit Provider Orthopaedic Surgery
DX: M54.16 Radiculopathy, lumbar region (principal)
CPT/HCPCS: 99202

== ENCOUNTER → 2023-04-13 07:50 | Outpatient (BNVA) | payer MEDICARE, SELFPAY | PROVIDERS: PCP Internal Medicine; Visit Provider Orthopaedic Surgery | DX: M54.16 Radiculopathy, lumbar region (principal) | CPT/HCPCS: 99202 ==

== ENCOUNTER 2023-04-23 08:44 | Outpatient (AMB) | payer MEDICARE, SELFPAY ==
--- NOTE | 2023-04-23 09:15 | A.SPINEOV_ITS ---
Intake Intake Visit Reasons: radiculopathy Intake Note: Ms. Bolivar is here today c/o left leg pain. MRI done @ [facility]. 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 She is a very nice 82-year-old female presents to the office today for evaluation of a pain going down her left leg into her anterior lateral thigh, down the front of her tibial region. It started about 5 months ago when she was ironing some curtains and she felt a pop and then immediately felt a stabbing sensation go down her leg. She denies any back pain Over the course of the 5 months she went through conservative treatment trials including nonsteroidal anti-inflammatories, tramadol, steroids, physical therapy. She thought that it might be a hip problem. She had an x-ray which shows some [id number] hip degeneration. She underwent a cortisone injection in her left hip with no significant improvement in the symptoms. She ultimately underwent an MRI which showed a herniated disc at L5-S1. She was referred to us for evaluation. She tells me that the pain is a constant 9/10 especially when she is up walking around. PMH: She is diabetic but her A1c has been in reasonably good range based on her last test done in October, history of hypertension, high cholesterol, right hip replacement Social hx: She does not smoke, drink or use any recreational drugs Medications: Metformin, Januvia, valsartan, amlodipine Allergies: None Physical exam: She is awake alert oriented, she stands up slowly she has an antalgic gait, positive straight leg raise at about 15 degrees. Intact strength and reflexes. Imaging review: Lumbar MRI done at [facility] in January of 2023 shows transitional anatomy and at what looks like L5-S1 there is disc degeneration with herniated disc on the left compressing the left S1 nerve root. There is a slight spondylolisthesis at this level with bilateral L5 foraminal stenosis. Impression: 82-year-old female presents with acute onset pain going down her left leg into her lateral thigh and into her anterior tibial region for the last 5 months with an MRI showing herniated disc at L5-S1 as well as L5 foraminal stenosis. She has no back pain. The pain is severe and unrelenting and very typical of nerve pain. She is very uncomfortable most of the day and can not do anything. She has tried conservative treatment as outlined above. We talked about the natural history of herniated discs. Typically these will resolve on their own, but she is gotten to the point where she is so uncomfortable in the pain has become so unbearable she is interested in the idea of surgery. I will review the films with Dr. Rene but I believe he will offer her a left L5-S1 microdiskectomy and foraminotomy on the left L5. We did briefly review the risks and benefits of surgery as well as the approach and recovery from surgery. Success rate quoted as 80-90%. Once I have a chance to finalize the plan with Dr. Rene I will get back to the patient. Thank you for allowing us to care for your patient. The total time spent with this visit with this patient was 45 minutes reviewing history, physical exam, lumbar imaging review, and implementation of treatment plan or further diagnostic testing Grayson Rene MD,PhD [facility] Coding Level of Care Code New Pt Level 4 (38681) Diagnoses Lumbar disc herniation M51.26
== END 2023-04-23 09:32 | disposition home or self-care (01) ==
PROVIDERS: PCP Internal Medicine; Referring Provider Orthopaedic Surgery; Visit Provider Physician Assistant
DX: M51.26 Other intervertebral disc displacement, lumbar region (principal)
CPT/HCPCS: 99204

== ENCOUNTER → 2023-04-23 08:44 | Outpatient (BNVA) | payer MEDICARE, SELFPAY | PROVIDERS: PCP Internal Medicine; Visit Provider Physician Assistant | DX: M51.26 Other intervertebral disc displacement, lumbar region (principal) | CPT/HCPCS: 99202 ==

== ENCOUNTER 2023-07-14 06:58 | Outpatient (REF) | payer MEDICARE, SELFPAY ==
[2023-07-14 07:15] LABS: MANUAL DIFF FLAG NO
[2023-07-14 07:55] LABS: Basophils Percent Auto 0.5 % (0-2); Eosinophils Absolute Auto 0.1 X10*3/uL (0.0-0.4); Eosinophils Percent Auto 2.3 % (0-4); Hematocrit 36.4 % (37.0-47.0); Hemoglobin 11.8 g/dl (12.0-16.0); Imm Gran Abs Auto 0.01 X10*3/uL (0.00-0.03); Imm Gran Pct Auto 0.2 % (0.0-0.4); Lymphocytes Absolute Auto 2.6 X10*3/uL (1.2-4.9); Lymphocytes Percent Auto 44.5 % (20-40); Mean Corpuscular HGB Conc 32.4 g/dl (31.0-35.0); Mean Corpuscular Hemoglobin 27.8 pg (27.0-33.0); Mean Corpuscular Volume 85.8 fL (80.0-98.0); Mean Platelet Volume 10.2 fL (9.4-12.3); Monocytes Absolute Auto 0.3 X10*3/uL (0.1-1.2); Monocytes Percent Auto 5.7 % (2-11); Neutrophils Absolute Auto 2.7 x10*3/uL (2.0-8.3); Neutrophils Percent Auto 46.8 % (45-73); Platelet Count 246 X10*3/uL (160-400); Red Blood Count 4.24 X10*6/uL (4.20-5.50); Red Cell Distribution Width 13.1 % (11.0-16.0); White Blood Count 5.8 X10*3/uL (4.8-10.8)
[2023-07-14 08:03] LABS: Estimated Average Glucose 194 mg/dL; Hemoglobin A1c % 8.4 % (<6.0)
[2023-07-14 08:22] LABS: Alanine Aminotransferase 12 U/L (0-31); Albumin Level 4.2 g/dL (3.5-5.0); Alkaline Phosphatase 81 U/L (39-117); Anion Gap 13 (12-20); Aspartate Amino Transferase 16 U/L (5-31); Bilirubin Total 0.4 mg/dL (0.0-1.0); Blood Urea Nitrogen 22 mg/dL (9-16); Calcium 10.1 mg/dL (8.4-10.2); Carbon Dioxide 24 mmol/L (22-29); Chloride 110 mmol/L (96-108); Cholesterol 119 mg/dL (<200); Estimated Glomerular Filt Rate 52; Glucose Random 161 mg/dL (60-115); HDL Cholesterol 44 mg/dL (>40); LDL Cholesterol Calculated 53 mg/dL (<100); Potassium 3.9 mmol/L (3.3-5.1); Sodium 143 mmol/L (135-145); Total Protein 7.3 g/dL (6.5-8.0); Triglycerides 111 mg/dL (<150)
[2023-07-14 10:31] LABS: Creatinine Urine 80.56 mg/dL; Microalbum/Creatinine Ratio Ur 16.1 ug/mg cr (<30)
== END 2023-07-14 06:59 | disposition home or self-care (01) ==
LOC: HO.LAB 06:58
PROVIDERS: PCP Internal Medicine; Visit Provider Internal Medicine
DX: E11.65 Type 2 diabetes mellitus with hyperglycemia (principal); E27.8 Other specified disorders of adrenal gland; E78.00 Pure hypercholesterolemia, unspecified; M48.062 Spinal stenosis, lumbar region with neurogenic claudication; N18.9 Chronic kidney disease, unspecified
CPT/HCPCS: 36415; 80053; 80061; 82043; 82570; 83036; 85025

== ENCOUNTER 2023-10-29 06:11 | Outpatient (REF) | payer MEDICARE, SELFPAY ==
[2023-10-29 07:25] LABS: Estimated Average Glucose 197 mg/dL; Hemoglobin A1c % 8.5 % (<6.0)
[2023-10-29 07:50] LABS: Alanine Aminotransferase 8 U/L (0-31); Albumin Level 4.3 g/dL (3.5-5.0); Alkaline Phosphatase 83 U/L (39-117); Anion Gap 14 (12-20); Aspartate Amino Transferase 14 U/L (5-31); Bilirubin Total 0.3 mg/dL (0.0-1.0); Blood Urea Nitrogen 21 mg/dL (9-16); Calcium 10.1 mg/dL (8.4-10.2); Carbon Dioxide 24 mmol/L (22-29); Chloride 110 mmol/L (96-108); Estimated Glomerular Filt Rate 41; Glucose Random 148 mg/dL (60-115); Potassium 4.5 mmol/L (3.3-5.1); Sodium 143 mmol/L (135-145); Total Protein 7.5 g/dL (6.5-8.0)
== END 2023-10-29 06:12 | disposition home or self-care (01) ==
LOC: HO.LAB 06:11
PROVIDERS: PCP Internal Medicine; Visit Provider Internal Medicine
DX: E11.65 Type 2 diabetes mellitus with hyperglycemia (principal); E11.22 Type 2 diabetes mellitus with diabetic chronic kidney disease; E27.8 Other specified disorders of adrenal gland; E78.00 Pure hypercholesterolemia, unspecified; M16.32 Unilateral osteoarthritis resulting from hip dysplasia, left hip; N18.9 Chronic kidney disease, unspecified
CPT/HCPCS: 36415; 80053; 83036

== ENCOUNTER 2023-12-14 06:41 | Outpatient (REF) | payer MEDICARE, SELFPAY ==
[2023-12-14 07:47] LABS: Alanine Aminotransferase 9 U/L (0-31); Albumin Level 4.1 g/dL (3.5-5.0); Alkaline Phosphatase 84 U/L (39-117); Anion Gap 12 (12-20); Aspartate Amino Transferase 13 U/L (5-31); Bilirubin Total 0.4 mg/dL (0.0-1.0); Blood Urea Nitrogen 22 mg/dL (9-16); Calcium 10.2 mg/dL (8.4-10.2); Carbon Dioxide 25 mmol/L (22-29); Chloride 110 mmol/L (96-108); Estimated Glomerular Filt Rate 38; Glucose Random 162 mg/dL (60-115); Potassium 3.8 mmol/L (3.3-5.1); Sodium 143 mmol/L (135-145); Total Protein 6.9 g/dL (6.5-8.0)
[2023-12-14 07:52] LABS: Estimated Average Glucose 183 mg/dL
== END 2023-12-14 06:42 | disposition home or self-care (01) ==
LOC: HO.LAB 06:41
PROVIDERS: PCP Internal Medicine; Visit Provider Internal Medicine
DX: E27.8 Other specified disorders of adrenal gland (principal); N18.9 Chronic kidney disease, unspecified; Z68.26 Body mass index [BMI] 26.0-26.9, adult
CPT/HCPCS: 36415; 80053; 83036

== ENCOUNTER 2023-12-16 12:42 | Outpatient (REF) | payer MEDICARE, SELFPAY ==
--- NOTE | ~2023-12-16 | CT_ITS ---
EXAMINATION: CT ABDOMEN WITHOUT CONTRAST CLINICAL INFORMATION: 1.4 cm left adrenal nodule. COMPARISON: MRI lumbar spine dated 02/04/2023. TECHNIQUE: Contiguous axial thin section helical images of the abdomen were performed without contrast. The data set was reformatted in the coronal and sagittal planes and reviewed on an independent workstation. This CT examination was performed using dose optimization techniques as appropriate, variously including the following: *Automated exposure control *Adjustment of mA and/or kV according to patient size (this includes techniques or standardized protocols for targeted exams where dose is matched to indication/reason for exam; i.e. extremities or head) *Use of iterative reconstruction technique DLP: 201 mGy-cm FINDINGS: LUNG BASES: There is a focus of minor scar/subsegmental atelectasis at the medial left base. LIVER, GALLBLADDER, AND BILIARY TREE: The liver is normal in size, shape, and attenuation. There is a Mark's lobe configuration. No focal hepatic lesion or biliary ductal dilatation is present. Gallstones are seen, without gallbladder wall thickening or pericholecystic inflammation. PANCREAS: Unremarkable. SPLEEN: Unremarkable. ADRENAL GLANDS: The right adrenal gland is unremarkable. The lateral limb of the left adrenal gland contains a 1.6 x 1.3 cm benign-appearing, fat-containing adenoma, with precontrast Hounsfield value of -0.51 units (7:32). This shows a small peripheral calcification. This finding requires no imaging follow-up. KIDNEYS AND URETERS: The kidneys are normal in size, shape, and attenuation. No hydronephrosis, hydroureter, or calculi seen. No perinephric stranding. GASTROINTESTINAL TRACT: The small and large bowel are unremarkable. The appendix is not identified with certainty. ABDOMINAL WALL: No significant hernia is appreciated. LYMPH NODES: Normal. VASCULAR: There is mild aortoiliac atherosclerotic calcification. No abdominal aortic aneurysm is seen. OSSEOUS STRUCTURES: At L5-S1, there is moderate degenerative disc disease, with disc space narrowing, vacuum disc phenomenon and a 4 mm anterolisthesis. No acute or aggressive osseous finding is seen. CT/CT abdomen wo IV con IMPRESSION: 1. A 1.6 cm benign, fat-containing adenoma is seen, as detailed. This requires no imaging follow-up. 2. There is cholelithiasis. 3. There is marked degenerative disease at L5-S1, with a 4 mm, grade 1 anterolisthesis. Fleischner guidelines were followed. Electronically signed by: Clifton Masters MD 01/05/2024 12:57 PM EDT RP
== END 2023-12-16 12:43 | disposition home or self-care (01) ==
LOC: HO.CT 12:42
PROVIDERS: PCP Internal Medicine; Visit Provider Internal Medicine
DX: D35.00 Benign neoplasm of unspecified adrenal gland (principal)
CPT/HCPCS: 74150

== ENCOUNTER 2023-12-28 19:08 | Outpatient (REF) | payer MEDICARE, SELFPAY ==
--- NOTE | ~2023-12-28 | MR_ITS ---
EXAMINATION: MR LUMBAR SPINE WITHOUT CONTRAST CLINICAL INFORMATION: Worsening lumbar radiculopathy COMPARISON: MRI lumbar spine February 03, [address] December 16, 2023 TECHNIQUE: MRI of the lumbar spine was obtained using routine sequences without contrast. FINDINGS: Again noted transitional lumbosacral anatomy with lumbarization of S1 and relatively well-formed S1-S2 disc space. Normal lumbar lordosis is preserved. Slight grade 1 anterolisthesis at L5-S1. Vertebral body heights are maintained. Stable heterogeneous sclerotic lesion in the left ilium measuring 1.8 cm (image 37, series 9) and additional sclerotic lesion within the anterior aspect of the left ilium corresponding to a presumed bone island on CT. Diffuse disc desiccation was redemonstrated moderate L5-S1 disc height loss with associated degenerative endplate irregularity and right eccentric type II Modic endplate changes with new patchy type I Modic endplate changes at this level and no stress-related edema within the right L5 pedicle. Level by level detail as follows: L1-L2: No spinal canal or neural foraminal stenosis. L2-L3: Disc bulge with right greater than left foraminal disc protrusions and mild facet arthrosis. No spinal canal stenosis. Stable minimal neural foraminal encroachment. L3-L4: Disc bulge with redemonstrated left greater than right foraminal disc protrusions and mild facet arthrosis. No spinal canal stenosis. Stable moderate left neural foraminal stenosis with mass effect along the exiting left L3 nerve root and mild right neural foraminal stenosis. L4-L5: Disc bulge with [id number] facet arthrosis. No spinal canal stenosis. Stable mild to moderate neural foraminal narrowing. L5-S1: Redemonstrated advanced bilateral facet arthrosis with unroofing of disc material and similar appearance of inferiorly migrated paracentral/left subarticular to left lateral recess disc extrusion. No significant spinal canal stenosis. Redemonstrated severe left subarticular zone narrowing with compression of the traversing left S1 nerve root. Stable severe bilateral neural foraminal stenosis with compression of the exiting L5 nerve roots. The conus medullaris terminates at the level of L2-L3. The distal spinal cord is normal in appearance. No epidural fluid collection, hematoma, or mass. There is mild to moderate fatty atrophy of the paraspinal musculature. Partially imaged left adrenal adenoma. 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 Superimposed fracture not excluded. Recommend further assessment with dedicated MRI of the left hip. Susceptibility artifact from right hip arthroplasty. Abdominal aorta is of normal contour and caliber. MR/MR lumbar spine wo con IMPRESSION: 1. 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 Superimposed fracture not excluded. Recommend further assessment with dedicated MRI of the left hip. 2. At L5-S1, similar appearance of inferiorly migrated paracentral/left subarticular to left lateral recess disc extrusion resulting in severe left subarticular zone narrowing with compression of the traversing left S1 nerve root. Stable severe bilateral neural foraminal stenosis with compression of the exiting L5 nerve roots. 3. At L3-L4, stable moderate left neural foraminal stenosis with mass effect along the exiting left L3 nerve root. 4. Partially imaged left adrenal adenoma. 5. Stable heterogeneous sclerotic lesion in the left ilium measuring 1.8 cm and additional sclerotic lesion within the anterior left ilium corresponding to a presumed bone island on CT. Electronically signed by: Yolis Schneider MD 12/29/2023 11:50 AM EDT
== END 2023-12-28 19:09 | disposition home or self-care (01) ==
LOC: HO.MRI 19:08
PROVIDERS: PCP Internal Medicine; Visit Provider Physician Assistant
DX: M51.26 Other intervertebral disc displacement, lumbar region (principal)
CPT/HCPCS: 72148

== ENCOUNTER 2024-01-21 10:02 | Outpatient (AMB) | payer MEDICARE, SELFPAY ==
--- NOTE | 2024-01-21 10:07 | MHC.OFFVIS ---
Vital Signs 01/21/24 10:23 Height 4 ft 8.5 in Weight 117 lb BMI 25.8 Intake Visit Reasons: New Prob - Left Leg Pain - ref from Spine Intake Note: Tiffanie is an 83 year old female who presents today for a new problem visit with complaints of left hip pain. Patient was referred by Spine as she was scheduled for a microdiscectomy, but MRI showed Left hip pathology IMPRESSION: 1. 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 Superimposed fracture not excluded. Recommend further assessment with dedicated MRI of the left hip. 2. At L5-S1, similar appearance of inferiorly migrated paracentral/left subarticular to left lateral recess disc extrusion resulting in severe left subarticular zone narrowing with compression of the traversing left S1 nerve root. Stable severe bilateral neural foraminal stenosis with compression of the exiting L5 nerve roots. 3. At L3-L4, stable moderate left neural foraminal stenosis with mass effect along the exiting left L3 nerve root. 4. Partially imaged left adrenal adenoma. 5. Stable heterogeneous sclerotic lesion in the left ilium measuring 1.8 cm and additional sclerotic lesion within the anterior left ilium corresponding to a presumed bone island on CT Allergies lactose Allergy (Intermediate, Verified 01/21/24 10:08) Gastrointestinal Upset atorvastatin Adverse Reaction (Intermediate, Verified 01/21/24 10:08) Muscle Pain lisinopril Adverse Reaction (Intermediate, Verified 01/21/24 10:08) Cough losartan Adverse Reaction (Intermediate, Verified 01/21/24 10:08) Itching tomato sauce Adverse Reaction (Intermediate, Uncoded 01/21/24 10:08) Diarrhea HPI HPI New Prob - Left Leg Pain - ref from Spine: Details: Tiffanie is an 83 year old female who presents today for a new problem visit with complaints of left hip pain. Patient was referred by Spine as she was scheduled for a microdiscectomy, but MRI showed Left hip pathology This is a 83-year-old woman with severe left hip pain. She is active and healthy and was scheduled for a microdiscectomy with Spine. She describes her pain evolving over the last several months to include more left groin pain and lass back pain. An MRI demonstrated collapse of the femoral head. She was subsequently sent to Orthopedics for evaluation. The pain that she now has in her left hip is very similar to the pain she had in her right hip prior to her right hip arthroplasty which was performed in [place] about 5-7 years ago. She now describes pain in the left groin and radiates down to the medial knee. She has difficulty standing from a seated position or walking without an assistive device. She has difficulty getting into and out of an automobile and stairs are painful. She has difficult time sleeping at night. COUNTS INCLUDE 234 BEDS AT THE [facility] Medical History (Updated 12/29/23 @ 15:12 by SEBASTIAN Rich) Hip pain (~03/05/23) Arthritis Diabetes mellitus Hypercholesteremia Anemia Asthma Hypertension Surgical History (Updated 12/22/23 @ 12:02 by Kimmie Sommer RN) Hx of colonoscopy H/O hernia repair (~1989) H/O tubal ligation (~1974) History of total right hip arthroplasty (07/28/14) Social History (Updated 12/22/23 @ 12:18 by Kimmie Sommer RN) Household Members: Spouse Housing: House Are you a primary director career services to a significant other at home: Yes ( starting with dementia) Do you presently have visiting nurse or other home services: No Comment: no counts needed Patient Tobacco Use Status: Never used Tobacco Physical Exam Vital Signs: BMI result Body Mass Index 25.8 Const General: cooperative, healthy appearing, no acute distress, well developed and alert HEENT Head: Yes normal to inspection, Yes normocephalic and Yes atraumatic Mouth: moist mucous membranes Eyes General: appearance normal, both eyes and all related structures EOM: EOMs intact bilaterally Chest Other: no audible wheezing. Resp Other: No audible wheezing Effort & Inspection: normal respiratory effort Cardio Other: Radial pulse palpable with no rythmic abnormalities Back/Spine/Pelvis Cervical Spine: normal cervical lordosis Skin General skin exam: no rashes or lesions noted Neuro General: no focal motor deficits Extrem Other: Almost no internal rotation of the left hip. Severe gait antalgia and positive impingement test. DP+2 SILT LLE 5/5 EHL/TA/GC Psych Appearance: grossly normal and well kempt Mental Status: mental status grossly normal Speech and movement: Normal speech and movement present Affect: normal affect Attitude: cooperative Results Reviewed Results Reviewed: I personally reviewed the MR images. IMPRESSION: 1. 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 Superimposed fracture not excluded. Recommend further assessment with dedicated MRI of the left hip. Assessment & Plan Assessment & Plan (1) Avascular necrosis of femoral head: Code(s): M87.059 - Idiopathic aseptic necrosis of unspecified femur Category: Medical Plan: This is an extremely pleasant and surprisingly healthy 83-year-old woman with severe avascular necrosis of the left hip. Her imaging and her clinical presentation are consistent with hip pathology. There is extensive loss of normal anatomy of the left femoral head and I recommend a left hip arthroplasty. I discussed this with her. I discussed the risks benefits and alternatives including but not limited to the risk of pain, infection, stiffness, need for further surgery, fracture, dislocation, leg length discrepancy as well as potential medical complications such as blood clots, pulmonary embolism and cardiac complications. She expressed understanding and we will proceed forward accordingly. I introduced her to our nurse navigator and they will schedule surgery in the next several months. Her hemoglobin A1c is 8.0. I discussed the need to keep this in check. She understands. Coding Level of Care Code Est Pt Level 4 (51364) Diagnoses Avascular necrosis of femoral head M87.059
[2024-01-21 10:23] VITALS: BMI 25.8
== END 2024-01-21 11:50 | disposition home or self-care (01) ==
PROVIDERS: PCP Internal Medicine; Visit Provider Orthopaedic Surgery
DX: M87.052 Idiopathic aseptic necrosis of left femur (principal)
CPT/HCPCS: 99214

== ENCOUNTER → 2024-01-21 10:02 | Outpatient (BNVA) | payer MEDICARE, SELFPAY | PROVIDERS: PCP Internal Medicine; Visit Provider Orthopaedic Surgery | DX: M87.059 Idiopathic aseptic necrosis of unspecified femur (principal) | CPT/HCPCS: 99212 ==

== ENCOUNTER 2024-02-01 09:10 | Outpatient (REF) | payer MEDICARE, SELFPAY ==
--- NOTE | ~2024-02-01 | MR_ITS ---
EXAMINATION: MR HIP WITHOUT CONTRAST, LEFT CLINICAL INFORMATION: Left hip pain. Femoral head osteonecrosis. Effusion. COMPARISON: Lumbar spine MRI dated 12/28/2023. Pelvic radiographs dated 02/10/2023. TECHNIQUE: MRI of the left hip was obtained using routine sequences on a high-field magnet. FINDINGS: ACETABULAR LABRUM: Diffuse attenuation and heterogeneity throughout the entirety of the labrum, consistent with diffuse complex degenerative tearing. ARTICULAR CARTILAGE/BONE: Diffuse, full-thickness articular cartilage loss with superior bony remodeling, subchondral cystic change, and marrow edema. There is flattening of the femoral head which may be related to bony remodeling. A nondisplaced subchondral fracture cannot be excluded. Edema extends into the femoral neck. No evidence of avascular necrosis. Moderate marginal osteophytes. No concerning lytic or blastic osseous lesion. Right hip arthroplasty without evidence of complication. Degenerative disc disease and facet arthropathy at L5-S1. MUSCLES/TENDONS: Mild proximal left hamstring tendinosis with minimal undersurface partial tearing. JOINT FLUID/BURSA: Moderate left hip joint effusion with mild synovitis. INTRAPELVIC STRUCTURES: Unremarkable. MR/MR hip LT wo con IMPRESSION: 1. Severe left hip osteoarthritis with superior bony remodeling. Flattening of the femoral head which may be related to bony remodeling. A nondisplaced subchondral fracture cannot be excluded. No evidence of avascular necrosis. 2. Moderate left hip joint effusion with mild synovitis. 3. Mild proximal left hamstring tendinosis with minimal undersurface partial tearing. Electronically signed by: Sunny Marin MD 02/01/2024 10:13 AM EDT
== END 2024-02-01 09:11 | disposition home or self-care (01) ==
LOC: HO.MRI 09:10
PROVIDERS: Visit Provider Physician Assistant
DX: M87.9 Osteonecrosis, unspecified (principal)
CPT/HCPCS: 73721

== ENCOUNTER → 2024-04-14 08:52 | Outpatient (BNVA) | payer MEDICARE, SELFPAY | PROVIDERS: PCP Internal Medicine | DX: Z01.818 Encounter for other preprocedural examination (principal) ==

== ENCOUNTER → 2024-04-17 13:32 | Outpatient (BNV) | payer MEDICARE, SELFPAY | PROVIDERS: Visit Provider Internal Medicine | DX: Z01.818 Encounter for other preprocedural examination (principal) | CPT/HCPCS: 93010 ==

== ENCOUNTER 2024-05-11 08:50 | Outpatient (AMB) | payer MEDICARE, SELFPAY ==
--- NOTE | 2024-05-11 09:03 | MHC.OFFVIS ---
Vital Signs 05/11/24 09:07 Height 4 ft 8.5 in Weight 117 lb BMI 25.8 Intake Visit Reasons: Pre-Op: L LYDIA w/NE 05/16/24 Intake Note: Tiffanie is an 83 year old female who presents today for a preoperative LT LYDIA, DOS 05/16/24 NE. Pain management agreement reviewed and signed. Allergies lactose Allergy (Intermediate, Verified 05/11/24 09:07) Gastrointestinal Upset atorvastatin Adverse Reaction (Intermediate, Verified 05/11/24 09:07) Muscle Pain lisinopril Adverse Reaction (Intermediate, Verified 05/11/24 09:07) Cough losartan Adverse Reaction (Intermediate, Verified 05/11/24 09:07) Itching eggs Adverse Reaction (Severe, Uncoded 05/11/24 09:07) Diarrhea tomato sauce Adverse Reaction (Intermediate, Uncoded 05/11/24 09:07) Diarrhea Medication List - Last Reconciled 05/11/24 by Leonel Robert PA-C acetaminophen ER 1,300 mg PO Q8H amlodipine 10 mg PO DAILY calcium carbonate-vitamin D3 600 mg-20 mcg (800 unit) (Caltrate plus D) 1 tab PO DAILY metformin ER 750 mg PO BID rosuvastatin 20 mg PO BEDTIME valsartan-hydrochlorothiazide 320-25 mg 1 tab PO DAILY walker Folding Front wheeled walker HPI Comments Details: Ms Bolivar presents to the office today for preop visit. She is scheduled for left total hip arthroplasty with Dr. Ortiz. She continues to have ongoing pain and difficulty with ambulation in the left hip, which is affecting her quality of life; therefore, she has elected to move forward with surgery. A1C as of 04/17/24 8.0 [facility] Medical History (Updated 03/20/24 @ 10:59 by Leonel Robert PA-C) Hip pain (~03/05/23) Arthritis Diabetes mellitus Hypercholesteremia Anemia Asthma Hypertension Surgical History Hx of colonoscopy H/O hernia repair (~1989) H/O tubal ligation (~1974) History of total right hip arthroplasty (07/28/14) Social History Household Members: Spouse Housing: House Are you a primary healthcare project manager to a significant other at home: No Do you presently have visiting nurse or other home services: No 75 years or older and lives alone: No Comment: no counts needed Patient Tobacco Use Status: Never used Tobacco e-Cigarette/Vaping Use: Never Used Review of Systems Const All systems reviewed & are unremarkable except as noted in HPI and below Physical Exam Vital Signs: BMI result Body Mass Index 25.8 Const General: cooperative and no acute distress Orientation/consciousness: patient oriented x3 HEENT Head: Yes normal to inspection, Yes normocephalic and Yes atraumatic Mouth: moist mucous membranes Eyes General: appearance normal, both eyes and all related structures EOM: EOMs intact bilaterally Chest Other: no audible wheezing. Resp Other: No audible wheezing Effort & Inspection: normal respiratory effort and able to speak in complete sentences Cardio Other: Radial pulse palpable with no rythmic abnormalities Peripheral pulses: Peripheral pulses 2+ throughout Back/Spine/Pelvis Cervical Spine: normal cervical lordosis Skin General skin exam: no rashes or lesions noted Neuro General: patient oriented x3 Extrem Other: Skin intact, no open wounds Almost no internal rotation of the left hip. Severe gait antalgia and positive impingement test. DP+2 SILT LLE 5/5 EHL/TA/GC Psych Appearance: grossly normal and well kempt Mental Status: mental status grossly normal Speech and movement: Normal speech and movement present Affect: normal affect Attitude: cooperative Results Reviewed Results Reviewed: Xrays were obtained in the office today and personally reviewed by me of the left hip for surgical planning Assessment & Plan Assessment & Plan (1) Avascular necrosis of bone of left hip: Code(s): M87.052 - Idiopathic aseptic necrosis of left femur Category: Medical Plan: I discussed in detail the procedure and what to expect pre and post operatively. We discussed the risks, benefits and alternatives to the surgery as well as the rehabilitation course. The risks; which include, but are not limited to infection, bleeding, nerve injury, ongoing pain, swelling, and stiffness, perioperative risk of injury to bones and soft tissues, and blood clots. I?ve answered all questions and with their understanding they have consented to move forward with Left total hip arthroplasty with Dr. Ortiz Orders: Orders XR hip LT min 2V w/wo pel Today M25.552 - Pain in left hip Coding Level of Care Code Est Pt Level 3 (32220) Complex EM visit Add On G2211 Diagnoses Avascular necrosis of bone of left hip M87.054
[2024-05-11 09:07] VITALS: BMI 25.8
== END 2024-05-11 09:31 | disposition home or self-care (01) ==
PROVIDERS: PCP Internal Medicine; Visit Provider Physician Assistant
DX: M87.052 Idiopathic aseptic necrosis of left femur (principal)
CPT/HCPCS: 99213; G2211

== ENCOUNTER 2024-05-11 09:37 | Outpatient (REF) | payer MEDICARE, SELFPAY ==
--- NOTE | ~2024-05-11 | XR_ITS ---
EXAMINATION: XR HIP 2 OR MORE VIEWS LEFT WITH PELVIS HISTORY: M25.552 - Pain in left hip COMPARISON: Comparison is made with the prior examination of the pelvis dated 02/10/2023. FINDINGS: A single AP view of the pelvis and two views of the left hip are submitted. Again seen is a sclerotic focus in the left iliac wing which likely represents a bone island. There is no fracture or dislocation. There is severe osteoarthritis with joint space narrowing, subchondral cyst formation, and flattening of the femoral head. The patient is status post right total hip arthroplasty. The soft tissues are unremarkable. XR/XR hip LT min 2V w/wo pel IMPRESSION: Severe osteoarthritis of the left hip as described. Electronically signed by: Bonifacio Santoyo MD 05/15/2024 09:24 AM GEMA
== END 2024-05-11 09:38 | disposition home or self-care (01) ==
LOC: HO.LAB 09:37
PROVIDERS: PCP Internal Medicine; Visit Provider Physician Assistant
DX: Z01.818 Encounter for other preprocedural examination (principal); M87.052 Idiopathic aseptic necrosis of left femur; M25.552 Pain in left hip; Z96.641 Presence of right artificial hip joint
CPT/HCPCS: 73502; 99212

== ENCOUNTER 2024-05-16 07:35 | Day surgery (SDC) | payer MEDICARE, SELFPAY ==
--- NOTE | 2024-04-17 | ECG_ITS ---
Test Reason : pre op Blood Pressure : / mmHG Vent. Rate : 068 BPM Atrial Rate : 068 BPM P-R Int : 110 ms QRS Dur : 090 ms QT Int : 394 ms P-R-T Axes : 033 -08 065 degrees QTc Int : 418 ms Sinus rhythm with short [place] Nonspecific ST and T wave abnormality Borderline ECG When compared with ECG of 10-OCT-2017 14:10, No significant change was found Referred By: Yamilex Estrella Electronically Signed By:MO IBRAHIM
[2024-04-17 12:45] VITALS: BP 152/68; PULSE 74; RESP 16; O2SAT 100; BMI 25.0
--- NOTE | 2024-04-17 13:03 | P.CONAN_ITS ---
Documented by User: Yamilex Estrella NP 05/12/24 13:00 HPI - Anesthesia Eval Consult details Narrative: 83yo F for Left Hip Total Replacement, 05/16/23 Medical clearance pending No recent illness No CP/SOB within limits of hip pain s/p Right LYDIA 2014 DM: FBS <100 Asthma: stable, no inhalers for >20 years [facility] Active Problems Active Problems: All Active Problems Avascular necrosis of bone of left hip (Acute) Avascular necrosis of femoral head (Acute) Osteonecrosis of hip with collapse of femoral head present on x-ray (Acute) Lumbar disc herniation (Acute) Lumbar spondylosis (Acute) Lumbar degenerative disc disease (Acute) Left hip pain (Acute) Osteoarthritis of left hip (Acute) Lumbar back pain with radiculopathy affecting left lower extremity (Acute) Arthritis (Acute) Past Medical History Medical History Hip pain (~03/05/23) Arthritis Diabetes mellitus Hypercholesteremia Anemia Asthma Hypertension Family History Family history of problems with anesthesia: No Surgical History Surgical History Hx of colonoscopy H/O hernia repair (~1989) H/O tubal ligation (~1974) History of total right hip arthroplasty (07/28/14) History of Problems with Anesthesia: No Social History Social History Household Members: Spouse Housing: House Are you a primary zoo caretaker to a significant other at home: No Do you presently have visiting nurse or other home services: No Comment: no counts needed Patient Tobacco Use Status: Never used Tobacco e-Cigarette/Vaping Use: Never Used Use of substances other than those prescribed or required for medical reasons: No Have you been hit, kicked, punched, or otherwise hurt by someone within the past year? If so, by whom?: No Spiritual Healthcare Practices: none Denominational Healthcare Practices: none Cultural Healthcare Practices: none Are you DNR?: No Advance Directives: No Advance Directives Information Provided: Yes Advance Directives on File: No Recently lost weight without trying: Yes How much weight loss: 2-13 pounds Eating poorly because of decreased appetite: Yes Nutrition screen score: 4 Nutrition Risks: Surgical patient >75years Poor oral hygiene: No Meds Allergies Allergy/AdvReac Type Severity Reaction Status Date / Time lactose Allergy Intermediate Gastrointestinal Verified 05/16/24 07:55 Upset atorvastatin AdvReac Intermediate Muscle Pain Verified 05/16/24 07:55 lisinopril AdvReac Intermediate Cough Verified 05/16/24 07:55 losartan AdvReac Intermediate Itching Verified 05/16/24 07:55 eggs AdvReac Severe Diarrhea Uncoded 05/11/24 09:07 tomato sauce AdvReac Intermediate Diarrhea Uncoded 05/11/24 09:07 Home Medications ?Medication ?Instructions ?Recorded ?Confirmed ?Last Taken ?Type amlodipine 10 mg tablet 10 mg PO DAILY 02/19/23 05/11/24 05/15/24 History metformin 750 mg tablet,extended 750 mg PO BID 02/19/23 05/11/24 05/15/24 History release 24 hr rosuvastatin 20 mg tablet 20 mg PO BEDTIME 02/19/23 05/11/24 05/15/24 History valsartan 320 1 tab PO DAILY 02/19/23 05/11/24 05/15/24 History mg-hydrochlorothiazide 25 mg tablet acetaminophen 650 mg 1,300 mg PO Q8H 12/21/23 05/11/24 05/14/24 History tablet,extended release calcium 600 mg (as carbonate)-vit 1 tab PO DAILY 12/21/23 05/11/24 05/03/24 History D3 20 mcg (800 unit) chewable tablet (Caltrate plus D) Exam Height,Weight and Vital Signs: Height 4 ft 8.5 in Weight 51.483 kg Last Vital Signs Pulse 74 04/17/24 12:45 Resp 16 04/17/24 12:45 BP 152/68 H 04/17/24 12:45 Pulse Ox 100 04/17/24 12:45 O2 Del Method Room Air 04/17/24 12:45 Pertinent Lab Results Pertinent Lab Results: Lab Results 04/17/24 04/17/24 04/17/24 Range/Units 13:20 13:51 13:53 WBC 7.3 (4.8-10.8) X10*3/uL RBC 4.03 L (4.20-5.50) X10*6/uL Hgb 11.2 L (12.0-16.0) g/dl Hct 34.0 L (37.0-47.0) % MCV 84.4 (80.0-98.0) fL MCH 27.8 (27.0-33.0) pg MCHC 32.9 (31.0-35.0) g/dl RDW 13.6 (11.0-16.0) % Plt Count 255 (160-400) X10*3/uL MPV 10.3 (9.4-12.3) fL Absolute Nucleated RBC 0.000 (0.0-0.012) X10*3/uL Nucleated RBC % (auto) 0.0 (0.0-0.2) /100WBC Sodium 143 (135-145) mmol/L Potassium 3.5 (3.3-5.1) mmol/L Chloride 108 (96-108) mmol/L Carbon Dioxide 25 (22-29) mmol/L Anion Gap 14 (12-20) BUN 16 (9-16) mg/dL Creatinine 1.07 (0.5-1.4) mg/dL Estim Creat Clear Calc 27.5 Estimated GFR 49 Random Glucose 156 H (60-115) mg/dL Estimat Average Glucose mg/dL Hemoglobin A1c % (<6.0) % Calcium 9.9 (8.4-10.2) mg/dL Nasal Screen MRSA (PCR) NEGATIVE (Negative) Nasal S. aureus Screen NEGATIVE (Negative) Nasal MRSA/S.aureus Interp SEE NOTE Blood Type Antibody Screen 04/17/24 05/11/24 Range/Units 13:59 10:05 WBC (4.8-10.8) X10*3/uL RBC (4.20-5.50) X10*6/uL Hgb (12.0-16.0) g/dl Hct (37.0-47.0) % MCV (80.0-98.0) fL MCH (27.0-33.0) pg MCHC (31.0-35.0) g/dl RDW (11.0-16.0) % Plt Count (160-400) X10*3/uL MPV (9.4-12.3) fL Absolute Nucleated RBC (0.0-0.012) X10*3/uL Nucleated RBC % (auto) (0.0-0.2) /100WBC Sodium (135-145) mmol/L Potassium (3.3-5.1) mmol/L Chloride (96-108) mmol/L Carbon Dioxide (22-29) mmol/L Anion Gap (12-20) BUN (9-16) mg/dL Creatinine (0.5-1.4) mg/dL Estim Creat Clear Calc Estimated GFR Random Glucose (60-115) mg/dL Estimat Average Glucose 183 mg/dL Hemoglobin A1c % 8.0 H (<6.0) % Calcium (8.4-10.2) mg/dL Nasal Screen MRSA (PCR) (Negative) Nasal S. aureus Screen (Negative) Nasal MRSA/S.aureus Interp Blood Type O Positive Antibody Screen NEGATIVE Narrative Narrative: EKG 04/2024 Vent. Rate : 068 BPM Atrial Rate : 068 BPM P-R Int : 110 ms QRS Dur : 090 ms QT Int : 394 ms P-R-T Axes : 033 -08 065 degrees QTc Int : 418 ms Sinus rhythm with short [place] Nonspecific ST and T wave abnormality Borderline ECG When compared with ECG of 10-OCT-2017 14:10, No significant change was found Airway Mallampati Class: III TM Dist: >3cm Neck ROM: Full Loose/Missing/Broken Teeth: Yes (chipped molars) Heart: RRR Lungs: CTAB Assessment and Plan Assessment Anesthesia Assessment: Anesthesia Plan Discussed and PAT Visit Final Anesthetic Review Family History of Problems with Anesthesia: No History of Problems with Anesthesia: No Documented by User: Amy Mcgowan MD 05/16/24 09:22 [facility] Past Medical History Medical History Hip pain (~03/05/23) Arthritis Diabetes mellitus Hypercholesteremia Anemia Asthma Hypertension Surgical History Surgical History Hx of colonoscopy H/O hernia repair (~1989) H/O tubal ligation (~1974) History of total right hip arthroplasty (07/28/14) Social History Social History Household Members: Spouse Housing: House Are you a primary zoo caretaker to a significant other at home: No Do you presently have visiting nurse or other home services: No Comment: no counts needed Patient Tobacco Use Status: Never used Tobacco e-Cigarette/Vaping Use: Never Used Use of substances other than those prescribed or required for medical reasons: No Have you been hit, kicked, punched, or otherwise hurt by someone within the past year? If so, by whom?: No Spiritual Healthcare Practices: none Denominational Healthcare Practices: none Cultural Healthcare Practices: none Are you DNR?: No Advance Directives: No Advance Directives Information Provided: Yes Advance Directives on File: No Recently lost weight without trying: Yes How much weight loss: 2-13 pounds Eating poorly because of decreased appetite: Yes Nutrition screen score: 4 Nutrition Risks: Surgical patient >75years Poor oral hygiene: No Meds Allergies Allergy/AdvReac Type Severity Reaction Status Date / Time lactose Allergy Intermediate Gastrointestinal Verified 05/16/24 07:55 Upset atorvastatin AdvReac Intermediate Muscle Pain Verified 05/16/24 07:55 lisinopril AdvReac Intermediate Cough Verified 05/16/24 07:55 losartan AdvReac Intermediate Itching Verified 05/16/24 07:55 eggs AdvReac Severe Diarrhea Uncoded 05/11/24 09:07 tomato sauce AdvReac Intermediate Diarrhea Uncoded 05/11/24 09:07 Home Medications ?Medication ?Instructions ?Recorded ?Confirmed ?Last Taken ?Type amlodipine 10 mg tablet 10 mg PO DAILY 02/19/23 05/11/24 05/15/24 History metformin 750 mg tablet,extended 750 mg PO BID 02/19/23 05/11/24 05/15/24 History release 24 hr rosuvastatin 20 mg tablet 20 mg PO BEDTIME 02/19/23 05/11/24 05/15/24 History valsartan 320 1 tab PO DAILY 02/19/23 05/11/24 05/15/24 History mg-hydrochlorothiazide 25 mg tablet acetaminophen 650 mg 1,300 mg PO Q8H 12/21/23 05/11/24 05/14/24 History tablet,extended release calcium 600 mg (as carbonate)-vit 1 tab PO DAILY 12/21/23 05/11/24 05/03/24 History D3 20 mcg (800 unit) chewable tablet (Caltrate plus D) Assessment and Plan Final Anesthetic Review NPO: Yes ASA Class: III Final Preanesthetic Review: No Changes in Pt Med Stat, Meds/Allgs Chart Reviewed, Consent Obtained/Reviewed and Anes Risks/Benef Reviewed Patient Risk: Intermediate Procedure Risk: Intermediate Anesthetic Plan Anesthetic Plan: GA Disposition: Standard PACU
[2024-04-17 14:50] LABS: MRSA Nasal PCR NEGATIVE (Negative); SA Nasal PCR NEGATIVE (Negative)
[2024-04-17 14:52] LABS: Hemoglobin 11.2 g/dl (12.0-16.0); Mean Corpuscular HGB Conc 32.9 g/dl (31.0-35.0); Mean Corpuscular Hemoglobin 27.8 pg (27.0-33.0); Mean Corpuscular Volume 84.4 fL (80.0-98.0); Mean Platelet Volume 10.3 fL (9.4-12.3); Platelet Count 255 X10*3/uL (160-400); Red Blood Count 4.03 X10*6/uL (4.20-5.50); Red Cell Distribution Width 13.6 % (11.0-16.0); White Blood Count 7.3 X10*3/uL (4.8-10.8)
[2024-04-17 15:06] LABS: Estimated Average Glucose 183 mg/dL; Hemoglobin A1C 184.2718 umol/L; Total Hemoglobin (HGBA1C) 2877.9282 umol/L
[2024-04-17 15:12] LABS: Anion Gap 14 (12-20); Blood Urea Nitrogen 16 mg/dL (9-16); Calcium 9.9 mg/dL (8.4-10.2); Carbon Dioxide 25 mmol/L (22-29); Chloride 108 mmol/L (96-108); Creatinine Clr Calc Pharmacy 27.5; Estimated Glomerular Filt Rate 49; Glucose Random 156 mg/dL (60-115); Potassium 3.5 mmol/L (3.3-5.1); Sodium 143 mmol/L (135-145)
[2024-05-16] VITALS (10 sets, daily range): BP systolic 117–176; BP diastolic 51–76; PULSE 78–90; RESP 14–18; TEMP 36.3–36.8; O2SAT 94–100; BMI 27.3
--- NOTE | ~2024-05-16 | XR_ITS ---
EXAMINATION: XR PELVIS CLINICAL INFORMATION: lt luther COMPARISON: X-ray dated May 11, 2024. TECHNIQUE: AP view of the pelvis. FINDINGS: Total left hip prosthesis with an acetabular and femoral component well-seated in the osseous structures. There is screw through the left acetabular prosthesis into the osseous structure. There is normal alignment. Total right hip arthroplasty prosthesis, intact without malalignment. Skin alverto overlapping the left hip. Focal calcification overlapping the left iliac bone/left gluteal region. XR/XR pelvis 1-2V IMPRESSION: Total left hip arthroplasty intact with normal alignment. Stable right hip arthroplasty. Electronically signed by: Guillaume Pugh MD 05/16/2024 03:52 PM EST
[2024-05-16] MEDS: oxyCODONE HCl ER 10 MG TAB.ER.12H PO ×2 (08:16→20:22)
[2024-05-16] MEDS: Lactated Ringers 1,000 ML 100 ML IVCONT ×2 (08:37→13:19)
[2024-05-16 08:51] LABS: Glucose, Whole Blood 143 mg/dL (60-115)
--- NOTE | 2024-05-16 08:53 | MHC.SHP ---
Pre-Procedural Eval Section A - 24 Hr Update-Section A only Date of Service: 05/16/24 The patient is an INPATIENT: No Changes since office visit: No Cold of Flu in the past 2 weeks, No New Medical Problems, No Changes in Medication and No Patient answered all questions The patient has been examined within 24 hours of the surgical procedure. The History & Physical has been completed within 30 days and I have reviewed it.: Yes Section B - Complete if H&P > 30 days Chief Complaint: Unilateral primary osteoarthritis, left hip Allergies: Allergies Allergy/AdvReac Type Severity Reaction Status Date / Time lactose Allergy Intermediate Gastrointestinal Verified 05/16/24 07:55 Upset atorvastatin AdvReac Intermediate Muscle Pain Verified 05/16/24 07:55 lisinopril AdvReac Intermediate Cough Verified 05/16/24 07:55 losartan AdvReac Intermediate Itching Verified 05/16/24 07:55 eggs AdvReac Severe Diarrhea Uncoded 05/11/24 09:07 tomato sauce AdvReac Intermediate Diarrhea Uncoded 05/11/24 09:07 Plan I have reviewed the history and physical and performed a pertinent physical examination on my patient. No changes have occurred unless specified. Time Spent With Patient Time: Total time managing care of this patient today ____ minutes.
--- NOTE | 2024-05-16 11:16 | PM.OP ---
Brief Operative Note Date of Service: 05/16/24 Pre-op diagnosis: Left hip OA Post-op diagnosis: same Procedure: Left LYDIA Implants: [place] Trident2 48 with 2 6.5 acetabular screws; Accoalde2 #3 [id number] + 0 32 Cocr Surgeon: Darrick Ortiz MD Anesthesia: GETA and local Was an Inspector Casing used for this Procedure?: Yes Inspector Casing: Leonel Robert Estimated blood loss (mL): 250 IV fluids (mL): 1,000 Pathology: other Condition: stable Disposition: PACU
--- NOTE | 2024-05-16 11:23 | W.PM.OPN ---
Operative Note Operative Note Date of Service: 05/16/24 Narrative: Date of Service: 05/16/24 Pre-op diagnosis: Left hip OA Post-op diagnosis: same Procedure: Left LYDIA Implants: [place] Trident2 48 with 2 6.5 acetabular screws; Accoalde2 #3 127 + 0 32 Cocr Surgeon: Darrick Ortiz MD Anesthesia: GETA and local Was an Industrial Engineering Analyst used for this Procedure?: Yes Industrial Engineering Analyst: Leonel Robert Estimated blood loss (mL): 250 IV fluids (mL): 1,000 Pathology: other Condition: stable Disposition: PACU Procedure in detail: Patient was brought into the operating room and placed in the right lateral decubitus position. All bony prominences were well padded and the limb was prepped and draped in standard sterile fashion. A time-out was called to identify proper site procedure proper surgeon IV antibiotics and 1 g of tranexamic acid were administered. I began by making a curvilinear incision over the posterolateral aspect of the greater trochanter. Dissection was taken down to the tensor fascia which was incised in line with the incision and a Charnley retractor was placed. Cautery was used to maintain hemostasis. The hip was internally rotated and the external rotators were identified. The vessels were cauterized and a full-thickness capsular/external rotator layer was developed starting just proximal to the piriformis. This layer was tagged and a dull Hohmann retractor was placed underneath the neck in the hip was dislocated. A neck cut was made 1 cm proximal to the lesser trochanter and the head and neck were removed and measured 42mm on the back table. The head was deformed and eburnated. The cup was eroded superiorly. I then removed the labrum and cauterized the fovea. I started with a 40 reamer and medialized to the inner table. I sequentially reamed up to a size 48 and reverse reamed shavings into superior cup and then impacted a 48 mm cup at 45 degrees of inclination and 25 degrees of version. two acetabular screws were placed superiorly usign standard AO technique. I then placed a 10 deg posterior lipped liner and turned my attention to the femur. I identified the piriformis insertion and used this as a starting point for my daniel cutter. The medius tendon was protected with a Hibs retractor. A Charnley awl was inserted in the canal and a curved curette used to remove the lateral bone. I irrigated copiously. I then sequentially broached in the patient's natural version to a size 3 and placed my trial implants. I used a #4/132/+4. She was a little long and less stable than I would have liked so I used a 132 + 0 and was satisfied with length and stability. I removed all instrumentation and copiously irrigated. I placed my final femoral implant and again took the hip through range of motion and was satisfied with the stability and length. The final +0 implant was impacted in place and the hip reduced. I then irrigated copiously and placed 1 g of local tranexamic acid. I performed a capsular closure with 2.0 fiberwire, Torres's fascia with 0 Vicryl, subcuticular with 2-0 Vicryl and the skin with alverto. Patient was placed into a sterile dressing. Patient was extubated brought to the recovery room in stable condition. There were no known complications.
[2024-05-16] MEDS: fentaNYL citrate/PF 100 MCG/2 ML VIAL 25 MCG IVPUSH ×5 (11:30→11:55)
[2024-05-16] MEDS: HYDROmorphone HCl 0.5 MG/0.5 ML SYRINGE 0.25 MG IVPUSH ×2 (13:27→17:29)
--- NOTE | 2024-05-16 14:03 | HO.PM.IMCN ---
History of Present Illness Data of Consult Service Date: 05/16/24 Primary Care Provider: Unknown Physician HPI This is a 83-year-old female patient with past medical history significant for hypertension, hup-bwquaeo-hdrkevvpb diabetes mellitus, hyperlipidemia and osteoarthritis of left hip admitted for elective left total hip arthroplasty, postprocedure patient complaining of left hip pain, otherwise denies lightheadedness, no dizziness, no headache, no fevers, no chills, no nausea, no vomiting or abdominal pain, no urinary symptoms, is compliant with all home medications. Review of Systems Review of Systems: General no headache no dizziness no fever chills. CVS no chest pain, no palpitation. Respiratory no cough no sputum production no respiratory distress. Gastrointestinal no nausea no vomiting, no abdominal pain Musculoskeletal left hip pain Skin no rash All other system are reviewed and negative. [facility] Medical History Hip pain (~03/05/23) Arthritis Diabetes mellitus Hypercholesteremia Anemia Asthma Hypertension Surgical History Hx of colonoscopy H/O hernia repair (~1989) H/O tubal ligation (~1974) History of total right hip arthroplasty (07/28/14) Social History Household Members: Spouse Housing: House Are you a primary point of care specialist to a significant other at home: No Do you presently have visiting nurse or other home services: No Comment: no counts needed Patient Tobacco Use Status: Never used Tobacco e-Cigarette/Vaping Use: Never Used Use of substances other than those prescribed or required for medical reasons: No Have you been hit, kicked, punched, or otherwise hurt by someone within the past year? If so, by whom?: No Spiritual Healthcare Practices: none Religion Healthcare Practices: none Cultural Healthcare Practices: none Are you DNR?: No Advance Directives: No Advance Directives Information Provided: Yes Advance Directives on File: No Recently lost weight without trying: Yes How much weight loss: 2-13 pounds Eating poorly because of decreased appetite: Yes Nutrition screen score: 4 Nutrition Risks: Surgical patient >75years Poor oral hygiene: No Meds Allergies Allergy/AdvReac Type Severity Reaction Status Date / Time lactose Allergy Intermediate Gastrointestinal Verified 05/16/24 07:55 Upset atorvastatin AdvReac Intermediate Muscle Pain Verified 05/16/24 07:55 lisinopril AdvReac Intermediate Cough Verified 05/16/24 07:55 losartan AdvReac Intermediate Itching Verified 05/16/24 07:55 eggs AdvReac Severe Diarrhea Uncoded 05/11/24 09:07 tomato sauce AdvReac Intermediate Diarrhea Uncoded 05/11/24 09:07 Active Medications: Current Medications Acetaminophen (Acetaminophen 325 Mg Tablet) 650 mg PO Q6H PRN PRN Reason: Pain, Mild 1-3,fever,headache Aspirin (Aspirin 325 Mg Tablet) 325 mg PO BID [facility] Celecoxib (Celecoxib 200 Mg Capsule) 200 mg PO BID [facility] Docusate Sodium (Docusate Sodium 100 Mg Capsule) 100 mg PO BID [facility] Hydromorphone HCl (Hydromorphone Hcl 0.5 Mg/0.5 Ml Syringe) 0.25 mg IVPUSH Q4H PRN; Protocol PRN Reason: Pain, Severe (Pain Scale 7-10) Last Admin: 05/16/24 13:27 Dose: 0.25 mg Cefazolin Sodium/Dextrose (Ancef) 2 gm in 50 mls @ 100 mls/hr IV POSTOP ONE Stop: 05/16/24 15:29 Lactated Ringer's (Lr) 1,000 mls @ 100 mls/hr IVCONT .Q10H [facility] Stop: 05/17/24 11:21 Last Admin: 05/16/24 13:19 Dose: 100 mls/hr Ondansetron HCl (Ondansetron Hcl 4 Mg/2 Ml Vial) 4 mg IVPUSH Q8H PRN PRN Reason: Nausea and Vomiting Oxycodone HCl (Oxycodone Hcl Immed Release 5 Mg Tablet) 5 mg PO Q4H PRN PRN Reason: Pain, Moderate(Pain Scale 4-6) Oxycodone HCl (Oxycodone Hcl Er 10 Mg Tab.Er.12h) 10 mg PO BID [facility] Sodium Chloride (0.9 % Sodium Chloride Flush 3 Ml Syringe) 3 ml IVFLUSH QSHIFT [facility] Home Medications ?Medication ?Instructions ?Recorded ?Confirmed ?Last Taken ?Type amlodipine 10 mg tablet 10 mg PO DAILY 02/19/23 05/11/24 05/15/24 History metformin 750 mg tablet,extended 750 mg PO BID 02/19/23 05/11/24 05/15/24 History release 24 hr rosuvastatin 20 mg tablet 20 mg PO BEDTIME 02/19/23 05/11/24 05/15/24 History valsartan 320 1 tab PO DAILY 02/19/23 05/11/24 05/15/24 History mg-hydrochlorothiazide 25 mg tablet acetaminophen 650 mg 1,300 mg PO Q8H 12/21/23 05/11/24 05/14/24 History tablet,extended release calcium 600 mg (as carbonate)-vit 1 tab PO DAILY 12/21/23 05/11/24 05/03/24 History D3 20 mcg (800 unit) chewable tablet (Caltrate plus D) Physical Exam Vital Signs and Narrative: Vital Signs: Last Vital Signs Temp 97.7 F 05/16/24 12:47 Pulse 84 05/16/24 12:47 Resp 18 05/16/24 12:47 BP 117/55 L 05/16/24 12:47 Pulse Ox 97 05/16/24 12:47 O2 Del Method Room Air 05/16/24 12:47 O2 Flow Rate 2 05/16/24 12:00 BMI result Body Mass Index 25.0 Const: Other: General resting comfortably in no acute distress. Moist mucous membranes Neck no JVD. CVS regular rate rhythm, Respiratory lungs clear to auscultation, no respiratory distress, no wheeze, no rhonchi. Gastrointestinal abdomen soft, non tender, bowel sounds audible, no guarding , no rigidity. Extremities no edema. Neuro non focal Skin no rash Psych appropriate affect Results Labs 04/17/24 13:53 04/17/24 13:51 Labs: Laboratory Results - last 24 hr 05/16/24 08:43 POC Glucose 143 H Assessment and Plan (1) Osteoarthritis of left hip: Status: Acute Plan 83-year-old female with past medical history of hypertension, osteoarthritis of hip, and IDDM, hyperlipidemia admitted for elective left total hip arthroplasty. L LYDIA POD # 0 Continue pain medications/stool softeners as per ortho Follow CBC and BMP DC IV fluid after 1 L Hypertension Soft blood pressures hold losartan/hydrochlorothiazide and Norvasc follow blood pressure closely, Hyperlipidemia on Crestor non formulary, resume on discharge. Kho-ohzuywn-ldvnptpoo diabetes mellitus on metformin currently on hold patient refusing insulin will check point of care blood sugars bid. Blood sugar 143, Continue diabetic diet poor blood sugar control last hemoglobin A1c 8. Chronic kidney disease stage 3 stable DVT prophylaxis on aspirin 325 b.i.d. Full code Will sign off reconsult with acute medical issues.
[2024-05-16] MEDS: ceFAZolin Sodium/Dextrose,Iso 2 GM/50 ML PIGGYBACK IV (14:23)
[2024-05-16] MEDS: oxyCODONE HCl Immed Release 5 MG TABLET PO (14:57)
--- NOTE | 2024-05-16 19:18 | P.DS_ITS ---
DS: Providers Provider Date of Service: 05/18/24 Date of discharge: 05/18/24 Primary care physician: Unknown Physician Consults: 05/16/24 13:00 Consult to Hospitalist Routine Comment: Consulting Provider: [facility] [facility] Hospitalists Reason For Exam: diabetic DS: Diagnosis Discharge Diagnosis (1) Osteoarthritis of left hip: Status: Acute DS: Summary Hospital Course Hospital Course: The patient underwent a successful left total hip arthroplasty, they were transferred to PACU and then to the floor to recover. During their stay, their vitals were stable, afebrile at 96.9. Labs were unremarkable, H/H 10.0/30.4. POD 1 they were started on Aspirin 325mg po bid for DVT ppx, they also received Physical Therapy services twice a day. Prior to discharge, their dressing was clean dry and intact, and the plan was to be discharged home with VNA services. Time Attestation Discharge Coordination Time (in mins): 30 Quality: Safe Use of Opioids Does Pt have an Active Cancer Diagnosis on the Problem List?: No Quality: Stroke Does the patient have a stroke diagnosis?: No Physical Exam Vital Signs: Vital Signs: Last Vital Signs Temp 98.0 F 05/16/24 16:00 Pulse 81 05/16/24 16:00 Resp 18 05/16/24 16:00 BP 134/66 05/16/24 16:00 Pulse Ox 97 05/16/24 12:47 O2 Del Method Room Air 05/16/24 16:00 O2 Flow Rate 2 05/16/24 12:00 BMI result Body Mass Index 27.3 Const: General: cooperative, healthy appearing and no acute distress Resp: Effort & Inspection: normal respiratory effort and able to speak in complete sentences Cardio: Rate: regular rate Peripheral pulses: Peripheral pulses 2+ throughout GI: Palpation (GI): Soft to palpation Skin: Lesions: no lesions Rashes: no rashes Extrem: Other: left hip dressing is c/d/i. Able to dorsi/plantar flex. Calf is supple and nontender. Sensation intact. Pedal pulse intact. DS: Data Data Completed and Pending Pending studies at discharge: Pending at discharge 05/16/24 11:02 Surgical [PTH] Routine Labs on day of discharge: Laboratory Results - last 24 hr 05/16/24 08:43 POC Glucose 143 H Discharge Plan Discharge Patient Disposition: Home Health Service Referrals: Physical Therapy - [facility] [place] [Outside] - 06/05/24 10:00 am (06/05/24 10:00 Physical Therapy Leonel Robert PA-C) Leonel Robert PA-C [Physician Bullet Assembly Press Setter Operator] - 2 Weeks (06/01/24 09:45 [facility] [place] Orthopedic Surgeons Leonel Robert PA-C) Discharge Medications: New ferrous sulfate 324 mg (65 mg iron) Tablet,Delayed Release (Dr/Ec) 324 mg PO DAILY 90 Days Qty: 90 0RF acetaminophen 325 mg Tablet 650 mg PO Q6H PRN (Reason: Pain, Mild 1-3,Fever,Headache) 30 Days Qty: 240 0RF aspirin 325 mg Tablet 325 mg PO BID 42 Days Qty: 84 0RF celecoxib 200 mg Capsule 200 mg PO BID 30 Days Qty: 60 0RF docusate sodium 100 mg Capsule 100 mg PO BID 30 Days Qty: 60 0RF oxycodone 5 mg Tablet 5 mg PO Q4H PRN (Reason: Pain, Moderate(Pain Scale 4-6)) 7 Days Qty: 42 0RF Rx Instructions: Partial Fill upon patient request. Continued (DME) walker [facility] See Rx Instructions .MEDSUPPLY Qty: 1 0RF Rx Instructions: Folding Front wheeled walker glipizide 5 mg tablet extended release 24hr 5 mg PO DAILY Vitamin C 100 mg Tablet 100 mg PO DAILY acetaminophen 650 mg Tablet Extended Release 1,300 mg PO Q8H Caltrate 600 plus D 600 mg-20 mcg (800 unit) Tablet,Chewable 1 tab PO DAILY metformin 750 mg tablet extended release 24 hr 750 mg PO BID amlodipine 10 mg tablet 10 mg PO DAILY rosuvastatin 20 mg tablet 20 mg PO BEDTIME Discontinued valsartan-hydrochlorothiazide 320-25 mg tablet 1 tab PO DAILY Discharge Orders: Discharge Order (Routine); Ordered 05/18/24 Ordered By: Virginia Clark Diet: Regular diet Activity on Discharge: Use cane or walker Activity Restrictions/Additional Instructions: * Physical Therapy for Total hip arthroplasty: wbat, posterior precautions, gait training, ROM, strength * Limit stair climbing * No showering, no tub bath-keep dressing clean, dry and intact * No driving x6 weeks * Continue Aspirin twice a day x 6 weeks * Follow up with [facility] [place] Orthopedics in 2 weeks: Print Language: Thai
--- NOTE | 2024-05-16 19:20 | P.F2F_ITS ---
Service Date Service Date: 05/16/24 Encounter Date of encounter: 05/17/24 Reasons for Services Signs and symptoms assessed: s/p LTHA Pt. is considered homebound due to recent surgery. Unable to drive, poor balance, poor gait mechanics. Reason for physical therapy: home safety and mobility, therapeutic exercises, restore joint function, gait/transfer training and ADL training Reason for occupational therapy: home safety and mobility, therapeutic exercises, restore joint function, gait/transfer training and ADL training Homebound: Leaving the home is medically contraindicated at this time without the asist of a device and/or another person due th the listed conditions above and below. Reason homebound: unsteady gait / fall risk, leg weakness, pain with ambulation and unable to drive Certification: Based on the above findings, I certify that this patient is confined to the home and needs intermittent custodial care, physical therapy and/or speech therapy, or continues to need occupational therapy. The patient is under my ca re, and I have initiated the establishment of the plan of care. The patient will be followed by a physician who will periodically review the plan of care. Time Spent With Patient Time: Total time managing care of this patient today ____ minutes.
[2024-05-16] MEDS: Docusate Sodium 100 MG CAPSULE PO (20:22)
[2024-05-16] MEDS: Celecoxib 200 MG CAPSULE PO (20:23)
[2024-05-16 22:54] LABS: Glucose, Whole Blood 238 mg/dL (60-115)
[2024-05-16] MEDS: 0.9 % Sodium Chloride Flush 3 ML SYRINGE IVFLUSH (23:29)
[2024-05-17] VITALS (10 sets, daily range): BP systolic 127–158; BP diastolic 61–73; PULSE 74–85; RESP 15–20; TEMP 36.1–36.8; O2SAT 96–99
[2024-05-17] MEDS: Insulin Lispro 100 UNIT/ML 3 ML VIAL 10 UNIT SUBCUT (00:11)
--- NOTE | 2024-05-17 00:23 | PC.NURSE ---
Patient Blood glucose @ 2250 resulted with 238. No ssi ordered. Reached out to MD [place] regarding coverage. One time dose of Lispro ordered
[2024-05-17] MEDS: HYDROmorphone HCl 0.5 MG/0.5 ML SYRINGE 0.25 MG IVPUSH (05:48)
[2024-05-17 06:39] LABS: MANUAL DIFF FLAG NO
[2024-05-17 06:54] LABS: Basophils Percent Auto 0.4 % (0-2); Eosinophils Percent Auto 0.5 % (0-4); Hematocrit 27.6 % (37.0-47.0); Hemoglobin 8.6 g/dl (12.0-16.0); Imm Gran Abs Auto 0.02 X10*3/uL (0.00-0.03); Imm Gran Pct Auto 0.2 % (0.0-0.4); Lymphocytes Percent Auto 24.4 % (20-40); Mean Corpuscular HGB Conc 31.2 g/dl (31.0-35.0); Mean Corpuscular Hemoglobin 26.9 pg (27.0-33.0); Mean Corpuscular Volume 86.3 fL (80.0-98.0); Mean Platelet Volume 10.3 fL (9.4-12.3); Monocytes Absolute Auto 0.7 X10*3/uL (0.1-1.2); Monocytes Percent Auto 8.1 % (2-11); Neutrophils Absolute Auto 5.4 x10*3/uL (2.0-8.3); Neutrophils Percent Auto 66.4 % (45-73); Platelet Count 251 X10*3/uL (160-400); Red Cell Distribution Width 13.7 % (11.0-16.0); White Blood Count 8.1 X10*3/uL (4.8-10.8)
[2024-05-17 07:01] LABS: Anion Gap 13 (12-20); Blood Urea Nitrogen 19 mg/dL (9-16); Calcium 9.2 mg/dL (8.4-10.2); Carbon Dioxide 23 mmol/L (22-29); Chloride 110 mmol/L (96-108); Creatinine Clr Calc Pharmacy 27.2; Estimated Glomerular Filt Rate 46; Glucose Fasting 87 mg/dL (60-99); Potassium 4.3 mmol/L (3.3-5.1); Sodium 142 mmol/L (135-145)
[2024-05-17] MEDS: Docusate Sodium 100 MG CAPSULE PO ×2 (07:30→20:05)
[2024-05-17] MEDS: oxyCODONE HCl ER 10 MG TAB.ER.12H PO ×2 (07:30→20:04)
[2024-05-17] MEDS: Celecoxib 200 MG CAPSULE PO ×2 (07:30→20:04)
[2024-05-17] MEDS: oxyCODONE HCl Immed Release 5 MG TABLET PO ×2 (07:30→13:00)
--- NOTE | 2024-05-17 07:45 | PM.PNORT ---
Subjective Subjective Date of Service: 05/17/24 Interval history: POD1 s/p LTHA Patient is resting in bed comfortably No overnight events Pain is managed Reports an episode of dizziness yesterday No additional complaints Physical Exam Vital Signs: Vital Signs: Last Vital Signs Temp 96.9 F 05/17/24 07:16 Pulse 83 05/17/24 07:16 Resp 18 05/17/24 07:16 BP 136/63 05/17/24 07:16 Pulse Ox 99 05/17/24 07:16 O2 Del Method Room Air 05/17/24 07:16 O2 Flow Rate 2 05/16/24 12:00 BMI result Body Mass Index 27.3 Const: General: cooperative, healthy appearing and no acute distress Resp: Effort & Inspection: normal respiratory effort and able to speak in complete sentences Cardio: Rate: regular rate Peripheral pulses: Peripheral pulses 2+ throughout GI: Palpation (GI): Soft to palpation Skin: Lesions: no lesions Rashes: no rashes Extrem: Other: left hip dressing is c/d/i. Able to dorsi/plantar flex. Calf is supple and nontender. Sensation intact. Pedal pulse intact. Procedures Date of Service Date of Service: 05/17/24 Progress Note: A&P Assessment and plan (1) S/P total left hip arthroplasty: Status: Acute Plan Continue pain mgmnt Begin ASA for dvt ppx begin PT/OT for LTHA Episode of dizziness and low h/h at 8.6/27.6 - 2 units of pRBC's ordered Dispo planning-PT eval, pain mgmnt Time Spent With Patient Time: Total time managing care of this patient today ____ minutes. Quality Stroke Does the patient have a stroke diagnosis?: No VTE Prior VTE?: No VTE Risk Level:: Medical - moderate - high VTE Device Contraindication: N/A - Device Ordered VTE Drug Contraindication: N/A - Med Ordered
[2024-05-17 08:03] LABS: Glucose, Whole Blood 88 mg/dL (60-115)
[2024-05-17] MEDS: Aspirin 325 MG TABLET PO ×2 (09:41→20:04)
--- NOTE | 2024-05-17 10:19 | HO.POSTANES ---
Post Anesthesia Evaluation Post Anesthesia Evaluation Date of Service: 05/17/24 Vital Signs: Vital Signs Temp Pulse Resp BP Pulse Ox O2 Del Method 05/17/24 10:09 97.9 F 77 15 127/61 05/17/24 09:25 83 136/63 99 05/17/24 07:16 96.9 F 83 18 136/63 99 Room Air 05/17/24 03:25 97.5 F 77 16 135/61 97 Room Air Anesthesia: General Endotracheal-GETA Mental Status: Awake Pain Control: Satisfactory Nausea/Vomiting: None Hydration: Adequate Anesthesia-Related Issues: No Anes. Related Issues
--- NOTE | 2024-05-17 12:18 | PC.NURSE ---
blood warmer was not used for first transfusion. enterred in error
--- NOTE | 2024-05-17 12:30 | HO.PM.IMPN ---
Subjective Subjective Date of Service: 05/17/24 Interval History: Being followed for hypertension/diabetes status post left total hip arthroplasty Offers no acute complaints, good pain control, tolerating diet no nausea, no vomiting or abdominal pain, no urinary symptoms no lightheadedness or dizziness. Review of Systems All other system reviewed and are negative. Physical Exam Vital Signs: Vital Signs: Last Vital Signs Temp 97.7 F 05/17/24 12:17 Pulse 74 05/17/24 12:17 Resp 16 05/17/24 12:17 BP 150/67 H 05/17/24 12:17 Pulse Ox 99 05/17/24 09:25 O2 Del Method Room Air 05/17/24 07:16 O2 Flow Rate 2 05/16/24 12:00 BMI result Body Mass Index 27.3 Const: Other: General resting comfortably in no acute distress. Moist mucous membranes Neck no JVD. CVS regular rate rhythm, Respiratory lungs clear to auscultation, no respiratory distress, no wheeze, no rhonchi. Gastrointestinal abdomen soft, non tender, bowel sounds audible, no guarding , no rigidity. Extremities no edema. Neuro non focal Skin no rash Psych appropriate affect Objective Data Active Medications Acetaminophen (Acetaminophen 325 Mg Tablet) 650 mg PO Q6H PRN PRN Reason: Pain, Mild 1-3,fever,headache Aspirin (Aspirin 325 Mg Tablet) 325 mg PO BID [facility] Last Admin: 05/17/24 09:41 Dose: 325 mg Documented By: NANCY Celecoxib (Celecoxib 200 Mg Capsule) 200 mg PO BID [facility] Last Admin: 05/17/24 07:30 Dose: 200 mg Documented By: BON Docusate Sodium (Docusate Sodium 100 Mg Capsule) 100 mg PO BID [facility] Last Admin: 05/17/24 07:30 Dose: 100 mg Documented By: BON Hydromorphone HCl (Hydromorphone Hcl 0.5 Mg/0.5 Ml Syringe) 0.25 mg IVPUSH Q4H PRN; Protocol PRN Reason: Pain, Severe (Pain Scale 7-10) Last Admin: 05/17/24 05:48 Dose: 0.25 mg Documented By: ADRIEN Ondansetron HCl (Ondansetron Hcl 4 Mg/2 Ml Vial) 4 mg IVPUSH Q8H PRN PRN Reason: Nausea and Vomiting Oxycodone HCl (Oxycodone Hcl Immed Release 5 Mg Tablet) 5 mg PO Q4H PRN PRN Reason: Pain, Moderate(Pain Scale 4-6) Last Admin: 05/17/24 07:30 Dose: 5 mg Documented By: BON Oxycodone HCl (Oxycodone Hcl Er 10 Mg Tab.Er.12h) 10 mg PO BID [facility] Last Admin: 05/17/24 07:30 Dose: 10 mg Documented By: BON Sodium Chloride (0.9 % Sodium Chloride Flush 3 Ml Syringe) 3 ml IVFLUSH QSHIFT [facility] Last Admin: 05/17/24 12:25 Dose: Not Given Documented By: NANCY Non-Admin Reason: Previously Administered Labs 05/17/24 05:33 05/17/24 05:33 Labs: Laboratory Results - last 24 hr 05/16/24 05/17/24 05/17/24 22:49 05:33 07:22 MCV 86.3 MCH 26.9 L MCHC 31.2 RDW 13.7 Plt Count 251 MPV 10.3 Immature Gran % (Auto) 0.2 Neut % (Auto) 66.4 Lymph % (Auto) 24.4 [place] % (Auto) 8.1 Eos % (Auto) 0.5 Baso % (Auto) 0.4 Lymph # (Auto) 2.0 [place] # (Auto) 0.7 Eos # (Auto) 0.0 Baso # (Auto) 0.0 Abs Immat Gran (auto) 0.02 Absolute Neuts (auto) 5.4 Absolute Nucleated RBC 0.000 Nucleated RBC % (auto) 0.0 Anion Gap 13 Estim Creat Clear Calc 27.2 Estimated GFR 46 POC Glucose 238 H 88 Fasting Glucose 87 Calcium 9.2 D Blood Type Antibody Screen Crossmatch 05/17/24 07:55 MCV MCH MCHC RDW Plt Count MPV Immature Gran % (Auto) Neut % (Auto) Lymph % (Auto) [place] % (Auto) Eos % (Auto) Baso % (Auto) Lymph # (Auto) [place] # (Auto) Eos # (Auto) Baso # (Auto) Abs Immat Gran (auto) Absolute Neuts (auto) Absolute Nucleated RBC Nucleated RBC % (auto) Anion Gap Estim Creat Clear Calc Estimated GFR POC Glucose Fasting Glucose Calcium Blood Type O Positive Antibody Screen NEGATIVE Crossmatch See Detail Assessment and Plan (1) S/P total left hip arthroplasty: Status: Acute Plan 83-year-old female with past medical history of hypertension, osteoarthritis of hip, and IDDM, hyperlipidemia admitted for elective left total hip arthroplasty. L LYDIA POD # 1 Continue pain medications/stool softeners as per ortho Hematocrit dropped but above transfusion threshold add iron supp Follow CBC Hypertension BP trending up will resume Norvasc low-dose 5 mg (home dose 10 mg) continue to hold losartan/hydrochlorothiazide Hyperlipidemia on Crestor non formulary, resume on discharge. Ohq-kjogzhu-hljzmwvyt diabetes mellitus on metformin currently on hold patient refusing insulin will check point of care blood sugars bid. Blood sugar fluctuating Continue diabetic diet , add glipizide xl 5mg home dose poor blood sugar control last hemoglobin A1c 8. Chronic kidney disease stage 3 stable DVT prophylaxis on aspirin 325 b.i.d. Full code Quality Stroke Does the patient have a stroke diagnosis?: No VTE Prior VTE?: No VTE Risk Level:: Medical - moderate - high VTE Device Contraindication: N/A - Device Ordered VTE Drug Contraindication: N/A - Med Ordered
[2024-05-17] MEDS: glipiZIDE XL 5 MG TAB.ER.24 PO (13:00)
[2024-05-17] MEDS: amLODIPine Besylate 5 MG TABLET PO (13:00)
--- NOTE | 2024-05-17 13:05 | PHA.MEDREC ---
Pharmacy Consult ? Medication Reconciliation Pharmacy has reviewed the medication reconciliation completed by nursing. Went and spoke with pt added on glipizide and vitamin C to med rec.
--- NOTE | 2024-05-17 15:40 | MHC.CM.PN ---
Patient lives in a 2 family home - patient and on first floor and daughter on 2nd floor. Ambulates w/ cane. Otherwise independent. Cares for her PRN. No services. PCP Dr Perry No HCP. CM provided education and offered assistance. DP: PT rec home w/ services. [facility] following per patient preference. Daughter expresses concerns re: ability to manage at home. Discussed [facility] referral or [facility] via [facility]. Daughter/patietn declined both. Daughter will be home time piece repairer for one week after dc before she returns to work. CM will continue to follow.
[2024-05-17 16:39] LABS: Glucose, Whole Blood 256 mg/dL (60-115)
[2024-05-17 22:39] LABS: Glucose, Whole Blood 183 mg/dL (60-115)
[2024-05-17] MEDS: 0.9 % Sodium Chloride Flush 3 ML SYRINGE IVFLUSH (23:40)
[2024-05-18 04:00] VITALS: BP 127/62; PULSE 84; RESP 16; TEMP 36.9; O2SAT 96
[2024-05-18 06:00] LABS: MANUAL DIFF FLAG NO
[2024-05-18 06:06] LABS: Basophils Percent Auto 0.6 % (0-2); Eosinophils Absolute Auto 0.2 X10*3/uL (0.0-0.4); Eosinophils Percent Auto 2.1 % (0-4); Hematocrit 35.8 % (37.0-47.0); Hemoglobin 11.5 g/dl (12.0-16.0); Imm Gran Abs Auto 0.03 X10*3/uL (0.00-0.03); Imm Gran Pct Auto 0.4 % (0.0-0.4); Lymphocytes Absolute Auto 1.8 X10*3/uL (1.2-4.9); Lymphocytes Percent Auto 24.6 % (20-40); Mean Corpuscular HGB Conc 32.1 g/dl (31.0-35.0); Mean Corpuscular Hemoglobin 27.4 pg (27.0-33.0); Mean Corpuscular Volume 85.4 fL (80.0-98.0); Mean Platelet Volume 9.4 fL (9.4-12.3); Monocytes Absolute Auto 0.5 X10*3/uL (0.1-1.2); Monocytes Percent Auto 6.7 % (2-11); Neutrophils Absolute Auto 4.7 x10*3/uL (2.0-8.3); Neutrophils Percent Auto 65.6 % (45-73); Platelet Count 178 X10*3/uL (160-400); Red Blood Count 4.19 X10*6/uL (4.20-5.50); Red Cell Distribution Width 14.2 % (11.0-16.0); White Blood Count 7.2 X10*3/uL (4.8-10.8)
[2024-05-18 06:23] LABS: Anion Gap 9 (12-20); Blood Urea Nitrogen 20 mg/dL (9-16); Calcium 9.1 mg/dL (8.4-10.2); Carbon Dioxide 24 mmol/L (22-29); Chloride 113 mmol/L (96-108); Creatinine Clr Calc Pharmacy 32.4; Estimated Glomerular Filt Rate 56; Glucose Fasting 105 mg/dL (60-99); Potassium 4.1 mmol/L (3.3-5.1); Sodium 142 mmol/L (135-145)
[2024-05-18 07:38] VITALS: BP 124/58; PULSE 78; RESP 18; TEMP 36.3; O2SAT 98
[2024-05-18 07:56] LABS: Glucose, Whole Blood 78 mg/dL (60-115)
[2024-05-18] MEDS: glipiZIDE XL 5 MG TAB.ER.24 PO (08:48)
[2024-05-18] MEDS: Ferrous Sulfate 324 MG TABLET.DR PO (08:48)
[2024-05-18] MEDS: Celecoxib 200 MG CAPSULE PO (08:48)
[2024-05-18] MEDS: oxyCODONE HCl ER 10 MG TAB.ER.12H PO (08:48)
[2024-05-18] MEDS: Aspirin 325 MG TABLET PO (08:48)
[2024-05-18] MEDS: amLODIPine Besylate 5 MG TABLET PO (08:48)
[2024-05-18] MEDS: Docusate Sodium 100 MG CAPSULE PO (08:49)
[2024-05-18] MEDS: 0.9 % Sodium Chloride Flush 3 ML SYRINGE IVFLUSH (08:49)
--- NOTE | 2024-05-18 09:12 | MHC.CM.PN ---
Addendum entered by Gloria Bernal RN 05/18/24 09:19: Patient requesting rx for cane, walker, shower chair. Ortho PA aware. Original Note: Patient medically cleared for dc home w/ services. Daughter to transport.
--- NOTE | 2024-05-18 11:49 | HO.PM.IMPN ---
Subjective Subjective Date of Service: 05/18/24 Interval History: Being followed for hypertension and diabetes status post left total hip arthroplasty. Feeling better this morning good pain control, participating with physical therapy denies headache no dizziness no chest pain, no palpitations, no lightheadedness, no dizziness. Review of Systems All other system reviewed and are negative Physical Exam Vital Signs: Vital Signs: Last Vital Signs Temp 97.3 F 05/18/24 07:38 Pulse 78 05/18/24 07:38 Resp 18 05/18/24 07:38 BP 124/58 L 05/18/24 07:38 Pulse Ox 98 05/18/24 07:38 O2 Del Method Room Air 05/18/24 07:38 O2 Flow Rate 2 05/16/24 12:00 BMI result Body Mass Index 27.3 Const: Other: General resting comfortably in no acute distress. Moist mucous membranes Neck no JVD. CVS regular rate rhythm, Respiratory lungs clear to auscultation, no respiratory distress, no wheeze, no rhonchi. Gastrointestinal abdomen soft, non tender, bowel sounds audible, no guarding , no rigidity. Extremities no edema. Neuro non focal Skin no rash Psych appropriate affect Objective Data Labs 05/18/24 05:52 05/18/24 05:52 Labs: Laboratory Results - last 24 hr 05/17/24 05/17/24 05/17/24 07:55 16:09 22:32 MCV MCH MCHC RDW Plt Count MPV Immature Gran % (Auto) Neut % (Auto) Lymph % (Auto) [place] % (Auto) Eos % (Auto) Baso % (Auto) Lymph # (Auto) [place] # (Auto) Eos # (Auto) Baso # (Auto) Abs Immat Gran (auto) Absolute Neuts (auto) Absolute Nucleated RBC Nucleated RBC % (auto) Anion Gap Estim Creat Clear Calc Estimated GFR POC Glucose 256 H 183 H Fasting Glucose Calcium Blood Type O Positive Antibody Screen NEGATIVE Crossmatch See Detail 05/18/24 05/18/24 05:52 07:40 MCV 85.4 MCH 27.4 MCHC 32.1 RDW 14.2 Plt Count 178 D MPV 9.4 Immature Gran % (Auto) 0.4 Neut % (Auto) 65.6 Lymph % (Auto) 24.6 [place] % (Auto) 6.7 Eos % (Auto) 2.1 Baso % (Auto) 0.6 Lymph # (Auto) 1.8 [place] # (Auto) 0.5 Eos # (Auto) 0.2 Baso # (Auto) 0.0 Abs Immat Gran (auto) 0.03 Absolute Neuts (auto) 4.7 Absolute Nucleated RBC 0.000 Nucleated RBC % (auto) 0.0 Anion Gap 9 L Estim Creat Clear Calc 32.4 Estimated GFR 56 POC Glucose 78 Fasting Glucose 105 H Calcium 9.1 Blood Type Antibody Screen Crossmatch Assessment and Plan (1) S/P total left hip arthroplasty: Status: Acute Plan 83-year-old female with past medical history of hypertension, osteoarthritis of hip, and IDDM, hyperlipidemia admitted for elective left total hip arthroplasty. L LYDIA POD # 2 Continue pain medications/stool softeners as per ortho Hematocrit dropped but above transfusion threshold Medically stable for discharge Hypertension Continue Norvasc 10 mg daily, BP stable recommend to hold losartan/hydrochlorothiazide and follow BP as outpatient Hyperlipidemia resume Crestor on discharge. Avy-fwgjfvl-yxxshpety diabetes mellitus on metformin continue glipizide and Glucophage, elevated hemoglobin A1c of 8 strongly recommend to follow diabetic diet consider insulin Chronic kidney disease stage 3 stable DVT prophylaxis on aspirin 325 b.i.d. Full code Will sign off. Quality Stroke Does the patient have a stroke diagnosis?: No VTE Prior VTE?: No VTE Risk Level:: Medical - moderate - high VTE Device Contraindication: N/A - Device Ordered VTE Drug Contraindication: N/A - Med Ordered
== END 2024-05-18 11:05 | disposition home health service (06) ==
LOC: HO.SSS 11:25 → HO.S3 11:45
PROVIDERS: Nurse Practitioner; Physician Assistant; PCP Internal Medicine; Visit Provider Orthopaedic Surgery
PROC: (CPT 27130; principal; 2024-05-16 10:00)
DX: M16.12 Unilateral primary osteoarthritis, left hip (principal); I10 Essential (primary) hypertension; E11.9 Type 2 diabetes mellitus without complications; D64.9 Anemia, unspecified; E78.00 Pure hypercholesterolemia, unspecified; J45.909 Unspecified asthma, uncomplicated; Z96.641 Presence of right artificial hip joint; Z79.84 Long term (current) use of oral hypoglycemic drugs; Z91.018 Allergy to other foods; Z88.8 Allergy status to other drugs, medicaments and biological substances; Z91.012 Allergy to eggs; Z79.899 Other long term (current) drug therapy
CPT/HCPCS: 27130; 36415; 72170; 80048; 82947; 83036; 85025; 85027; 86850; 86900; 86901; 86923; 87640; 87641; 88311; 93005; 97161; 97165; C1713; C1776; J0131; J0690; J1100; J1171; J2003; J2405; J2704; J2795; J3010; J7120; P9016

== ENCOUNTER → 2024-05-16 07:35 | Outpatient (BNV) | payer MEDICARE, SELFPAY | PROVIDERS: Visit Provider Orthopaedic Surgery | DX: Z47.1 Aftercare following joint replacement surgery (principal); Z96.642 Presence of left artificial hip joint | CPT/HCPCS: 27130; 99024; G0180 ==

== ENCOUNTER → 2024-05-16 07:35 | Outpatient (BNV) | payer MEDICARE, SELFPAY | PROVIDERS: Visit Provider Hospitalist | DX: I10 Essential (primary) hypertension (principal); E11.22 Type 2 diabetes mellitus with diabetic chronic kidney disease; N18.30 Chronic kidney disease, stage 3 unspecified; M16.12 Unilateral primary osteoarthritis, left hip | CPT/HCPCS: 99222; 99232 ==

== ENCOUNTER → 2024-05-16 11:23 | Outpatient (BNV) | payer MEDICARE, SELFPAY | PROVIDERS: Visit Provider Radiology Diagnostic Radiology | DX: Z96.642 Presence of left artificial hip joint (principal) | CPT/HCPCS: 72170 ==

== ENCOUNTER 2024-06-01 09:26 | Outpatient (AMB) | payer MEDICARE, SELFPAY ==
--- NOTE | 2024-06-01 09:47 | MHC.OFFVIS ---
Intake Visit Reasons: 2WK PO: L LYDIA w/NE 05/16/24 Intake Note: Tiffanie is an 83 year old female who presents today for a follow up of LT LYDIA, DOS 05/16/24 NE. Patient reports her pain levels are at 3 on the 0-10 pain scale. She takes Tylenol when in severe pain. She continues to do home PT twice a week. 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 Allergies lactose Allergy (Intermediate, Verified 06/01/24 10:04) Gastrointestinal Upset atorvastatin Adverse Reaction (Intermediate, Verified 06/01/24 10:04) Muscle Pain lisinopril Adverse Reaction (Intermediate, Verified 06/01/24 10:04) Cough losartan Adverse Reaction (Intermediate, Verified 06/01/24 10:04) Itching eggs Adverse Reaction (Severe, Uncoded 06/01/24 10:04) Diarrhea tomato sauce Adverse Reaction (Intermediate, Uncoded 06/01/24 10:04) Diarrhea Medication List - Last Reconciled 06/01/24 by Leonel Robert PA-C [3 in 1 commode duration 99 days] acetaminophen 650 mg (2 x 325 mg) PO Q6H PRN 30 days amlodipine 10 mg PO DAILY ascorbic acid (vitamin C) (Vitamin C) 100 mg PO DAILY aspirin 325 mg PO BID 42 days calcium carbonate-vitamin D3 600 mg-20 mcg (800 unit) (Caltrate plus D) 1 tab PO DAILY cane As directed cane As directed celecoxib 200 mg PO BID 30 days docusate sodium 100 mg PO BID 30 days ferrous sulfate 324 mg PO DAILY 90 days glipizide ER 5 mg PO DAILY metformin ER 750 mg PO BID oxycodone 5 mg PO Q4H PRN 7 days rosuvastatin 20 mg PO BEDTIME Shower Chair As directed walker As directed walker Folding Front wheeled walker HPI HPI 2WK PO: L LYDIA w/NE 05/16/24: Details: 83-year-old female returns to the office today status post left total hip arthroplasty with Dr. Ortiz 05/16/2024. She is ambulating with a cane. Working at home with physical therapy and doing well with no concerns. [facility] Medical History Hip pain (~03/05/23) Arthritis Diabetes mellitus Hypercholesteremia Anemia Asthma Hypertension Surgical History Hx of colonoscopy H/O hernia repair (~1989) H/O tubal ligation (~1974) History of total right hip arthroplasty (07/28/14) Social History Household Members: Spouse and Family Housing: House Are you a primary manager primary care to a significant other at home: No Do you presently have visiting nurse or other home services: No 75 years or older and lives alone: No Comment: no counts needed Patient Tobacco Use Status: Never used Tobacco e-Cigarette/Vaping Use: Never Used Review of Systems Const All systems reviewed & are unremarkable except as noted in HPI and below Physical Exam Const General: cooperative and no acute distress Orientation/consciousness: patient oriented x3 Resp Effort & Inspection: normal respiratory effort and able to speak in complete sentences Cardio Peripheral pulses: Peripheral pulses 2+ throughout Neuro General: patient oriented x3 Extrem Other: Left hip incision clean dry and intact. No erythema no drainage. No pain with range of motion hip flexion. Calf supple nontender neurovascularly intact. Assessment & Plan Assessment & Plan (1) S/P total left hip arthroplasty: Code(s): Z96.642 - Presence of left artificial hip joint Category: Surgical Plan: [place] removed Steri-Strips applied today. She will continue to work with physical therapy at home and when she is ready to transition to outpatient therapy we will send a prescription. She will continue to work on gait training and strengthening. She will see us back in [address] Ortiz sooner if needed. Coding Level of Care Code Global (21433) Diagnoses S/P total left hip arthroplasty Z96.642
== END 2024-06-01 11:00 | disposition home or self-care (01) ==
PROVIDERS: PCP Internal Medicine; Visit Provider Physician Assistant
DX: Z96.642 Presence of left artificial hip joint (principal)
CPT/HCPCS: 99024

== ENCOUNTER → 2024-06-01 09:26 | Outpatient (BNVA) | payer MEDICARE, SELFPAY | PROVIDERS: PCP Internal Medicine; Visit Provider Physician Assistant | DX: Z47.1 Aftercare following joint replacement surgery (principal); Z96.642 Presence of left artificial hip joint | CPT/HCPCS: 99212 ==

== ENCOUNTER 2024-06-26 12:42 | Outpatient (REF) | payer MEDICARE, SELFPAY ==
--- NOTE | ~2024-06-26 | XR_ITS ---
EXAMINATION: XR PELVIS CLINICAL INFORMATION: M25.559 - Pain in unspecified hip COMPARISON: May 16, 2024 TECHNIQUE: AP view of the pelvis. FINDINGS: Metallic prosthesis with an acetabular and femoral component well-seated in the osseous structures, left hip. The prosthesis intact. The alignment is normal. No loosening. Skin alverto have been removed. Total right hip arthroplasty procedure/prosthesis, unchanged. XR/XR pelvis 1-2V IMPRESSION: Status post bilateral total hip arthroplasty prosthesis, the most recent on the left side. Overall satisfactory. Electronically signed by: Guillaume Pugh MD 06/27/2024 02:09 PM [facility] STINSON
== END 2024-06-26 12:43 | disposition home or self-care (01) ==
LOC: HO.HOSX 12:42
PROVIDERS: Visit Provider Orthopaedic Surgery
DX: M25.559 Pain in unspecified hip (principal); Z96.642 Presence of left artificial hip joint
CPT/HCPCS: 72170; 99212

== ENCOUNTER 2024-06-26 12:55 | Outpatient (AMB) | payer MEDICARE, SELFPAY ==
--- NOTE | 2024-06-26 13:26 | MHC.OFFVIS ---
Intake Visit Reasons: 6WK PO: L LYDIA w/NE 05/16/24 Intake Note: Tiffanie is an 83 year old female who presents today for a post operative appointment 6 weeks s/p Left LYDIA 05/16/24. Patient reports that she is dong great, she is ambulating stairs and walking well. She has no concerns at this time, and has no pain. Allergies lactose Allergy (Intermediate, Verified 06/01/24 10:04) Gastrointestinal Upset atorvastatin Adverse Reaction (Intermediate, Verified 06/01/24 10:04) Muscle Pain lisinopril Adverse Reaction (Intermediate, Verified 06/01/24 10:04) Cough losartan Adverse Reaction (Intermediate, Verified 06/01/24 10:04) Itching eggs Adverse Reaction (Severe, Uncoded 06/01/24 10:04) Diarrhea tomato sauce Adverse Reaction (Intermediate, Uncoded 06/01/24 10:04) Diarrhea HPI HPI 6WK PO: L LYDIA w/NE 05/16/24: Details: Tiffanie is an 83 year old female who presents today for a post operative appointment 6 weeks s/p Left LYDIA 05/16/24. Patient reports that she is dong great, she is ambulating stairs and walking well. She has no concerns at this time, and has no pain. [facility] Medical History Hip pain (~03/05/23) Arthritis Diabetes mellitus Hypercholesteremia Anemia Asthma Hypertension Surgical History Hx of colonoscopy H/O hernia repair (~1989) H/O tubal ligation (~1974) History of total right hip arthroplasty (07/28/14) Social History Household Members: Spouse and Family Housing: House Are you a primary healthcare prof to a significant other at home: No Do you presently have visiting nurse or other home services: No 75 years or older and lives alone: No Comment: no counts needed Patient Tobacco Use Status: Never used Tobacco e-Cigarette/Vaping Use: Never Used Physical Exam Extrem Other: Walking well with no pain and only mild trendelenberg No cheryl nwith hip ROM Inc c/d/i Assessment & Plan Assessment & Plan (1) S/P total left hip arthroplasty: Code(s): Z96.642 - Presence of left artificial hip joint Category: Surgical Plan: Doing well s/p L LYDIA. May resume activity as tolerated. f/u 6 wk with PA Orders: Orders XR pelvis 1-2V Today M25.559 - Pain in unspecified hip Coding Level of Care Code Global (75220) Diagnoses S/P total left hip arthroplasty Z96.642
== END 2024-06-26 14:53 | disposition home or self-care (01) ==
PROVIDERS: PCP Internal Medicine; Visit Provider Orthopaedic Surgery
DX: Z96.642 Presence of left artificial hip joint (principal)
CPT/HCPCS: 99024

== ENCOUNTER → 2024-06-26 12:58 | Outpatient (BNV) | payer MEDICARE, SELFPAY | PROVIDERS: Visit Provider Radiology Diagnostic Radiology | DX: Z96.643 Presence of artificial hip joint, bilateral (principal) | CPT/HCPCS: 72170 ==

== ENCOUNTER 2024-08-07 09:36 | Outpatient (REF) | payer MEDICARE, SELFPAY ==
--- NOTE | ~2024-08-07 | XR_ITS ---
EXAMINATION: XR PELVIS 1-2 VIEWS, XR HIP 1 VIEW LEFT HISTORY: M25.559 - Pain in unspecified hip COMPARISON: Comparison is made with the prior examination dated 06/26/2024. FINDINGS: Two AP views of the pelvis and an additional view of the left hip are submitted. The patient is status post left total hip arthroplasty. The orthopedic elements are in anatomic alignment. There is no radiographic evidence of loosening. There is no fracture or dislocation. A right hip prosthesis is also noted. The soft tissues are unremarkable. XR/XR hip LT 1V IMPRESSION: Status post left total hip arthroplasty. Electronically signed by: Bonifacio Santoyo MD 08/07/2024 02:48 PM EDT
--- NOTE | ~2024-08-07 | XR_ITS ---
EXAMINATION: XR PELVIS 1-2 VIEWS, XR HIP 1 VIEW LEFT HISTORY: M25.559 - Pain in unspecified hip COMPARISON: Comparison is made with the prior examination dated 06/26/2024. FINDINGS: Two AP views of the pelvis and an additional view of the left hip are submitted. The patient is status post left total hip arthroplasty. The orthopedic elements are in anatomic alignment. There is no radiographic evidence of loosening. There is no fracture or dislocation. A right hip prosthesis is also noted. The soft tissues are unremarkable. XR/XR pelvis 1-2V IMPRESSION: Status post left total hip arthroplasty. Electronically signed by: Bonifacio Santoyo MD 08/07/2024 02:48 PM EDT
== END 2024-08-07 09:37 | disposition home or self-care (01) ==
LOC: HO.HOSX 09:36
PROVIDERS: PCP Internal Medicine; Visit Provider Orthopaedic Surgery
DX: M25.559 Pain in unspecified hip (principal); M25.552 Pain in left hip; Z96.642 Presence of left artificial hip joint
CPT/HCPCS: 72170; 73501; 99212

== ENCOUNTER 2024-08-07 09:36 | Outpatient (AMB) | payer MEDICARE, SELFPAY ==
--- NOTE | 2024-08-07 09:57 | A.OFFVIS_ITS ---
Intake Visit Reasons: 6WK OV: [place] LYDIA w/NE 05/16/24 Intake Note: Tiffanie is an 83 year old female who presents today for a post operative appointment 3 months s/p Left LYDIA 05/16/24. Patient reports that she is doing well with no concerns at this time. Allergies lactose Allergy (Intermediate, Verified 06/01/24 10:04) Gastrointestinal Upset atorvastatin Adverse Reaction (Intermediate, Verified 06/01/24 10:04) Muscle Pain lisinopril Adverse Reaction (Intermediate, Verified 06/01/24 10:04) Cough losartan Adverse Reaction (Intermediate, Verified 06/01/24 10:04) Itching eggs Adverse Reaction (Severe, Uncoded 06/01/24 10:04) Diarrhea tomato sauce Adverse Reaction (Intermediate, Uncoded 06/01/24 10:04) Diarrhea HPI HPI 6WK OV: L LYDIA w/NE 05/16/24: Details: Tiffanie is an 83 year old female who presents today for a post operative appointment 3 months s/p Left LYDIA 05/16/24. Patient reports that she is doing well with no concerns at this time. [facility] Medical History Hip pain (~03/05/23) Arthritis Diabetes mellitus Hypercholesteremia Anemia Asthma Hypertension Surgical History Hx of colonoscopy H/O hernia repair (~1989) H/O tubal ligation (~1974) History of total right hip arthroplasty (07/28/14) Social History Household Members: Spouse and Family Housing: House Are you a primary customer care assistant to a significant other at home: No Do you presently have visiting nurse or other home services: No 75 years or older and lives alone: No Comment: no counts needed Patient Tobacco Use Status: Never used Tobacco e-Cigarette/Vaping Use: Never Used Physical Exam Extrem Other: Normal gait and no pain with hip range of motion Results Reviewed Results Reviewed: I personally reviewed relevant radiographs. Left LYDIA in expected post operative position with no hardware complications or evidence of loosening Assessment & Plan Assessment & Plan (1) S/P total left hip arthroplasty: Code(s): Z96.642 - Presence of left artificial hip joint Category: Surgical Plan: Doing well status post left hip replacement. May follow up in 1 year or as needed. Dental prophylaxis discussed. Orders: Orders XR pelvis 1-2V Today M25.559 - Pain in unspecified hip XR hip LT 1V Today M25.552 - Pain in left hip Coding Level of Care Code Global (92745) Diagnoses S/P total left hip arthroplasty Z96.642
== END 2024-08-07 10:11 | disposition home or self-care (01) ==
LOC: HO.HOS 09:36
PROVIDERS: PCP Internal Medicine; Visit Provider Orthopaedic Surgery
DX: Z96.642 Presence of left artificial hip joint (principal)
CPT/HCPCS: 99024

== ENCOUNTER → 2024-08-07 09:45 | Outpatient (BNV) | payer MEDICARE, SELFPAY | PROVIDERS: PCP Internal Medicine; Visit Provider Radiology Diagnostic Radiology | DX: Z96.642 Presence of left artificial hip joint (principal) | CPT/HCPCS: 72170; 73501 ==

== ENCOUNTER 2025-02-14 11:09 | Emergency (ER) | payer MEDICARE, OTHER, SELFPAY ==
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
[2025-02-14 11:15] VITALS: BP 184/87; PULSE 105; RESP 18; TEMP 36.6; O2SAT 98; BMI 28.8
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
[2025-02-14] MEDS: Lidocaine 4 % Patch ADH..PATCH 1 PATCH TRANSDERMA (13:22)
[2025-02-14 14:16] VITALS: BP 184/87; PULSE 105; RESP 18; TEMP 36.6; O2SAT 98
== END 2025-02-14 14:17 | disposition home or self-care (01) ==
PROVIDERS: Emergency Provider Emergency Medicine; PCP Internal Medicine
DX: S13.4XXA Sprain of ligaments of cervical spine, initial encounter (principal); R51.9 Headache, unspecified; M54.2 Cervicalgia; M54.6 Pain in thoracic spine; V43.52XA Car driver injured in collision with other type car in traffic accident, initial encounter; Y93.9 Activity, unspecified; Y92.488 Other paved roadways as the place of occurrence of the external cause; Y99.9 Unspecified external cause status
CPT/HCPCS: 70450; 72125; 99283; 99284

== ENCOUNTER → 2025-02-14 11:19 | Outpatient (BNV) | payer MEDICARE, SELFPAY | PROVIDERS: PCP Internal Medicine; Visit Provider Radiology Diagnostic Radiology | DX: M47.812 Spondylosis without myelopathy or radiculopathy, cervical region (principal); R51.9 Headache, unspecified | CPT/HCPCS: 70450; 72125 ==

== ENCOUNTER 2025-03-20 06:34 | Outpatient (REF) | payer MEDICARE, OTHER, SELFPAY ==
[2025-03-20 06:51] LABS: MANUAL DIFF FLAG NO
[2025-03-20 07:25] LABS: Hematocrit 36.8 % (37.0-47.0); Hemoglobin 11.4 g/dl (12.0-16.0); Imm Gran Abs Auto 0.01 X10*3/uL (0.00-0.03); Imm Gran Pct Auto 0.2 % (0.0-0.4); Lymphocytes Absolute Auto 2.6 X10*3/uL (1.2-4.9); Mean Corpuscular HGB Conc 31.0 g/dl (31.0-35.0); Mean Corpuscular Hemoglobin 27.3 pg (27.0-33.0); Mean Corpuscular Volume 88.2 fL (80.0-98.0); NRBC Abs Auto 0.000 X10*3/uL (0.0-0.012); NRBC Pct Auto 0.0 /100WBC (0.0-0.2); Platelet Count 215 X10*3/uL (160-400); Red Blood Count 4.17 X10*6/uL (4.20-5.50); White Blood Count 6.1 X10*3/uL (4.8-10.8)
[2025-03-20 07:51] LABS: Alanine Aminotransferase 9 U/L (0-31); Albumin Level 4.3 g/dL (3.5-5.0); Alkaline Phosphatase 78 U/L (39-117); Anion Gap 11 (12-20); Aspartate Amino Transferase 19 U/L (5-31); Blood Urea Nitrogen 23 mg/dL (9-16); Calcium 9.8 mg/dL (8.4-10.2); Carbon Dioxide 24 mmol/L (22-29); Chloride 111 mmol/L (96-108); Cholesterol 121 mg/dL (<200); Estimated Glomerular Filt Rate 42; HDL Cholesterol 50 mg/dL (>40); Potassium 4.4 mmol/L (3.3-5.1); Sodium 142 mmol/L (135-145); Total Protein 6.9 g/dL (6.5-8.0); Triglycerides 62 mg/dL (<150)
[2025-03-20 08:15] LABS: Microalbum/Creatinine Ratio Ur 14.3 ug/mg cr (<30)
== END 2025-03-20 06:35 | disposition home or self-care (01) ==
LOC: HO.LAB 06:34
PROVIDERS: PCP Internal Medicine; Visit Provider Internal Medicine
DX: E11.22 Type 2 diabetes mellitus with diabetic chronic kidney disease (principal); N18.9 Chronic kidney disease, unspecified; D63.1 Anemia in chronic kidney disease; Z91.199 Patient's noncompliance with other medical treatment and regimen due to unspecified reason
CPT/HCPCS: 36415; 80053; 80061; 82043; 82570; 83036; 85025